=== PATIENT | male | born 1955 | race Caucasian/White ===

== ENCOUNTER → 2022-01-27 08:38 | Outpatient (BNVA) | payer OTHER, MEDICARE, SELFPAY | PROVIDERS: PCP Nurse Practitioner Adult Health; Visit Provider Nurse Practitioner Family | DX: M25.561 Pain in right knee (principal); M25.562 Pain in left knee; Z96.653 Presence of artificial knee joint, bilateral; M47.816 Spondylosis without myelopathy or radiculopathy, lumbar region | CPT/HCPCS: 99202 ==

== ENCOUNTER 2022-03-27 05:57 | Outpatient (REF) | payer OTHER, SELFPAY | END 2022-03-27 05:58 | disposition home or self-care (01) | LOC: HO.RADIR 05:57 | PROVIDERS: Visit Provider Internal Medicine | DX: M25.561 Pain in right knee (principal); M25.562 Pain in left knee; G89.29 Other chronic pain | CPT/HCPCS: 64447 ==

== ENCOUNTER 2022-04-03 06:06 | Outpatient (REF) | payer OTHER, SELFPAY ==
--- NOTE | ~2022-04-03 | FL_ITS ---
EXAMINATION: XR FLUOROSCOPY WITH IMAGES CLINICAL INFORMATION: Pain. COMPARISON: None. TECHNIQUE: Fluoroscopy performed by ANANTH Sanon Fluoroscopy time: 0.1 minutes DAP: 0.215 Gycm2 Images: 2 FINDINGS: There are 2 AP and lateral views of left knee with bilateral knee prosthesis in satisfactory alignment. No periprostatic soft tissue seen. There is a severed screw seen along the medial aspect of the proximal tibia. There are needles positioned along the medial and lateral distal femur and proximal medial tibia for pain management. FL/FL guidance in treatment room IMPRESSION: Knee prosthesis in satisfactory alignment. Fluoroscopy was provided to referring physician for pain management.
== END 2022-04-03 06:07 | disposition home or self-care (01) ==
LOC: HO.RADIR 06:06
PROVIDERS: Visit Provider Internal Medicine
DX: M17.0 Bilateral primary osteoarthritis of knee (principal); G89.29 Other chronic pain
CPT/HCPCS: 64450; 64454; J2795

== ENCOUNTER → 2022-04-07 10:19 | Outpatient (BNVA) | payer OTHER, SELFPAY | PROVIDERS: PCP Nurse Practitioner Adult Health; Visit Provider Nurse Practitioner Family | DX: M17.0 Bilateral primary osteoarthritis of knee (principal) ==

== ENCOUNTER 2022-06-03 06:14 | Outpatient (REF) | payer OTHER, SELFPAY | END 2022-06-03 06:15 | disposition home or self-care (01) | LOC: HO.RADIR 06:14 | PROVIDERS: Visit Provider Internal Medicine | DX: M17.0 Bilateral primary osteoarthritis of knee (principal); G89.29 Other chronic pain; Z87.891 Personal history of nicotine dependence | CPT/HCPCS: 64447; 64450 ==

== ENCOUNTER 2022-08-12 09:03 | Day surgery (SDC) | payer MEDICARE, SELFPAY ==
[2022-08-12 10:35] VITALS: BP 132/80; RESP 18; TEMP 36.6; O2SAT 99; BMI 23.1
[2022-08-12 11:35] VITALS: BP 138/81; PULSE 67; RESP 16; TEMP 36.6; O2SAT 99
--- NOTE | 2022-08-12 13:34 | MHC.SHP ---
Pre-Procedural Eval Section A Date of Service: 08/12/22 The patient is an INPATIENT: No Changes since office visit: Yes Patient answered all questions The History & Physical has been completed within 30 days and I have reviewed it.: No Section B Chief Complaint: Chronic bilateral knee pain Relevant Family History (Specify if Yes): No Relevant Social History: None Present Medications: see Short Stay Collaborative assessment Medical History: No relevant PMH History of Previous Operations: Relevant previous surgery/procedure and date(s) ( history of TKR) Allergies: Allergies Allergy/AdvReac Type Severity Reaction Status Date / Time No Known Allergies Allergy Verified 06/05/22 11:41 Review of Systems Sugical H&P ROS: Negative: Constitution, Cardiovascular and Respiratory Exam Surgical H&P Exam: Normal: HEENT, Normal: Heart and Normal: Lungs Plan Diagnosis/Plan: Unchanged I have reviewed the history and physical and performed a pertinent physical examination on my patient. No changes have occurred unless specified.
--- NOTE | 2022-08-12 13:35 | P.BOP_ITS ---
Brief Operative Note Date of Service: 08/12/22 Pre-op diagnosis: Chronic right knee pain Post-op diagnosis: same Procedure: Temporary right saphenous nerve stimulator placement at the level of the adductor canal Implants: SPR temporary PNS system Surgeon: Cabrera Mendoza MD Anesthesia: local Was an Spinning Room Worker used for this Procedure?: No Estimated blood loss (mL): 2 Pathology: none sent Condition: stable Disposition: same day
--- NOTE | 2022-08-12 13:36 | P.OP_ITS ---
Operative Note Operative Note Date of Service: 08/12/22 Narrative: Peripheral Nerve Stimulation Temporary Lead Placement, Ultrasound-Guided, Saphenous Nerve, Right ? After the risks, benefits and alternatives were discussed with the patient and informed consentwas obtained, patient was placed in the supine position and padded to foster comfort. Appropriate skin and bony landmarks were identified, and pertinent vascular structures were located. The skin overlying the needle entry site was prepped and draped in sterile fashion. Ultrasound was used to identify the femoral artery, the femoral vein and the saphenous nerve. After identifying and marking the intended target along the course of the right saphenous nerve, the skin around the planned entry point and the subcutaneous tissues were injected with local anesthetic. An introducer needle and stimulating probe were assembled, inserted and advanced along the intended course of the saphenous; nerve, taking care to maintain the proper depth of insertion as the introducer was advanced under ultrasound guidance. The introducer needle was delivered to a location in proximity to the nerve taking care not to puncture the femoral artery or the vein. Multiple stimulation parameters were used to deliver stimulation to the saphenous nerve in concert with stimulating at multiple positions around the nerve. Nerve target acquisition was confirmed noting generation of sensory and mild motor effects (paresthesia, muscle tension, etc) in the medial knee, leg and ankle; corresponding to the distribution of the saphenous nerve. Various electrical parameter combinations were tested, and the lead location was adjusted ( physically relocated under ultrasound guidance) until the patient indicated medial knee paresthesia and tension overlapping the distribution of the patient?s typical region of pain. The stimulating probe was removed from the introducer and a percutaneous lead was guided through the needle and delivered to a location in similar proximity to the nerve. Final location was verified with electrical stimulation and documented. The introducer needle was removed, and the exposed end of the percutaneous lead was attached to an external stimulator unit. Various electrical parameter combinations were again tested until the patient indicated paresthesia and muscle tension overlapping the distribution of the patient?s typical region of pain. After confirming that lead impedance was in the normal range, the external unit was detached, the needle was removed, and the lead was anchored at the skin. The lead was threaded into the connector block and electrical continuity and desired patient response was confirmed. The connector block was attached to the external stimulator unit. The site was covered with a sterile occlusive dressing. A final ultrasound image was taken to document final placement. The patient was observed for stability of vital signs and comfort.
== END 2022-08-12 12:07 | disposition home or self-care (01) ==
PROVIDERS: PCP Nurse Practitioner Adult Health; Visit Provider Internal Medicine
PROC: (CPT 64555; principal; 2022-08-12 10:40)
DX: M25.561 Pain in right knee (principal); G89.29 Other chronic pain; M17.0 Bilateral primary osteoarthritis of knee; Z96.653 Presence of artificial knee joint, bilateral
CPT/HCPCS: 64555; C1778

== ENCOUNTER → 2022-08-20 09:46 | Outpatient (BNVA) | payer MEDICARE, SELFPAY | PROVIDERS: PCP Nurse Practitioner Adult Health; Visit Provider Nurse Practitioner Family | DX: G89.29 Other chronic pain (principal); Z96.653 Presence of artificial knee joint, bilateral | CPT/HCPCS: 99212 ==

== ENCOUNTER 2022-10-21 08:49 | Day surgery (SDC) | payer MEDICARE, SELFPAY ==
[2022-10-21 09:23] VITALS: BP 141/88; PULSE 84; RESP 16; TEMP 36.2; O2SAT 98; BMI 22.6
[2022-10-21 11:15] VITALS: BP 129/75; PULSE 71; RESP 16; TEMP 37.1; O2SAT 98
--- NOTE | 2022-10-22 13:46 | MHC.SHP ---
Pre-Procedural Eval Section A Date of Service: 10/21/22 The patient is an INPATIENT: No Changes since office visit: Yes Patient answered all questions The History & Physical has been completed within 30 days and I have reviewed it.: No Section B Chief Complaint: osteoarthritis Relevant Family History (Specify if Yes): No Present Medications: see Short Stay Collaborative assessment Medical History: No relevant PMH History of Previous Operations: No relevant previous surgery Allergies: Allergies Allergy/AdvReac Type Severity Reaction Status Date / Time No Known Allergies Allergy Verified 10/21/22 09:21 Review of Systems Sugical H&P ROS: Negative: Constitution, Cardiovascular and Respiratory Exam Surgical H&P Exam: Normal: HEENT, Normal: Heart and Normal: Lungs Plan Diagnosis/Plan: Unchanged I have reviewed the history and physical and performed a pertinent physical examination on my patient. No changes have occurred unless specified. Time Spent With Patient Time: Total time managing care of this patient today 60 minutes.
--- NOTE | 2022-10-22 14:09 | PM.OP ---
Brief Operative Note Date of Service: 10/21/22 Pre-op diagnosis: Right knee osteoarthritis, chronic right knee pain Post-op diagnosis: same Procedure: Temporary right saphenous nerve stimulator Implants: SPR temporary PNS system Surgeon: Cabrera Mendoza MD Anesthesia: local Was an Placement Manager used for this Procedure?: No Estimated blood loss (mL): 1 Pathology: none sent Condition: stable Disposition: same day
--- NOTE | 2022-10-22 14:12 | P.OP_ITS ---
Operative Note Operative Note Date of Service: 10/21/22 Narrative: Peripheral Nerve Stimulation Temporary Lead Placement, Ultrasound-Guided, Saphenous Nerve, Right ? After the risks, benefits and alternatives were discussed with the patient and informed consentwas obtained, patient was placed in the supine position and padded to foster comfort. Appropriate skin and bony landmarks were identified, and pertinent vascular structures were located. The skin overlying the needle entry site was prepped and draped in sterile fashion. Ultrasound was used to identify the femoral artery, the femoral vein and the saphenous nerve. After identifying and marking the intended target along the course of the saphenous nerve, the skin around the planned entry point and the subcutaneous tissues were injected with local anesthetic. An introducer needle and stimulating probe were assembled, inserted and advanced along the intended course of the saphenous; nerve, taking care to maintain the proper depth of insertion as the introducer was advanced under ultrasound guidance. The introducer needle was delivered to a location in proximity to the nerve taking care not to puncture the femoral artery or the vein. Multiple stimulation parameters were used to deliver stimulation to the saphenous nerve in concert with stimulating at multiple positions around the nerve. Nerve target acquisition was confirmed noting generation of sensory and mild motor effects (paresthesia, muscle tension, etc) in the medial knee, leg and ankle; corresponding to the distribution of the saphenous nerve. Various electrical parameter combinations were tested, and the lead location was adjusted (physic ally relocated under ultrasound guidance) until the patient indicated medial knee paresthesia and tension overlapping the distribution of the patient?s typical region of pain. The stimulating probe was removed from the introducer and a percutaneous lead was guided through the needle and delivered to a location in similar proximity to the nerve. Final location was verified with electrical stimulation and documented. The introducer needle was removed, and the exposed end of the percutaneous lead was attached to an external stimulator unit. Various electrical parameter combinations were again tested until the patient indicated paresthesia and muscle tension overlapping the distribution of the patient?s typical region of pain. After confirming that lead impedance was in the normal range, the external unit was detached, the needle was removed, and the lead was anchored at the skin. The lead was threaded into the connector block and electrical continuity and desired patient response was confirmed. The connector block was attached to the external stimulator unit. The site was covered with a sterile occlusive dressing. A final ultrasound image was taken to document final placement. The patient was observed for stability of vital signs and comfort.
== END 2022-10-21 11:30 | disposition home or self-care (01) ==
PROVIDERS: PCP Nurse Practitioner Adult Health; Visit Provider Internal Medicine
PROC: (CPT 64555; principal; 2022-10-21 10:00)
DX: M17.0 Bilateral primary osteoarthritis of knee (principal); M25.561 Pain in right knee; M25.562 Pain in left knee; G89.29 Other chronic pain; Z96.653 Presence of artificial knee joint, bilateral
CPT/HCPCS: 64555; C1778

== ENCOUNTER → 2022-10-29 09:47 | Outpatient (BNVA) | payer MEDICARE, SELFPAY | PROVIDERS: PCP Nurse Practitioner Adult Health; Visit Provider Nurse Practitioner Family | DX: M25.561 Pain in right knee (principal); M25.562 Pain in left knee; M17.0 Bilateral primary osteoarthritis of knee; G89.29 Other chronic pain; Z96.653 Presence of artificial knee joint, bilateral | CPT/HCPCS: 99212 ==

== ENCOUNTER → 2022-11-12 11:23 | Outpatient (BNVA) | payer MEDICARE, SELFPAY | PROVIDERS: PCP Nurse Practitioner Adult Health; Visit Provider Nurse Practitioner Family | DX: M17.0 Bilateral primary osteoarthritis of knee (principal); G89.29 Other chronic pain; M25.561 Pain in right knee; M25.562 Pain in left knee; Z96.653 Presence of artificial knee joint, bilateral; Z98.890 Other specified postprocedural states | CPT/HCPCS: 99212 ==

== ENCOUNTER → 2022-12-17 08:51 | Outpatient (BNVA) | payer MEDICARE, SELFPAY | PROVIDERS: PCP Nurse Practitioner Adult Health; Visit Provider Nurse Practitioner Family | DX: M17.0 Bilateral primary osteoarthritis of knee (principal); M25.561 Pain in right knee; M25.562 Pain in left knee; G89.29 Other chronic pain; Z96.653 Presence of artificial knee joint, bilateral | CPT/HCPCS: 99212 ==

== ENCOUNTER 2023-02-03 13:41 | Day surgery (SDC) | payer MEDICARE, SELFPAY ==
[2023-02-03 13:52] VITALS: BMI 23.1
[2023-02-03 14:01] VITALS: BP 145/75; PULSE 84; RESP 16; TEMP 36.7; O2SAT 98
--- NOTE | 2023-02-03 14:51 | MHC.SHP ---
Pre-Procedural Eval Section A Date of Service: 02/03/23 The patient is an INPATIENT: No Changes since office visit: Yes Patient answered all questions The History & Physical has been completed within 30 days and I have reviewed it.: No Section B Chief Complaint: Pain in left knee Relevant Family History (Specify if Yes): No Relevant Social History: None Present Medications: see Short Stay Collaborative assessment Medical History: No relevant PMH History of Previous Operations: No relevant previous surgery Allergies: Allergies Allergy/AdvReac Type Severity Reaction Status Date / Time No Known Allergies Allergy Verified 02/03/23 13:53 Review of Systems Sugical H&P ROS: Negative: Constitution, Cardiovascular and Respiratory Exam Surgical H&P Exam: Normal: HEENT, Normal: Heart and Normal: Lungs Plan Diagnosis/Plan: Unchanged I have reviewed the history and physical and performed a pertinent physical examination on my patient. No changes have occurred unless specified. Time Spent With Patient Time: Total time managing care of this patient today ____ minutes.
--- NOTE | 2023-02-03 14:52 | PM.OP ---
Brief Operative Note Date of Service: 02/03/23 Pre-op diagnosis: Left knee pain, chronic Post-op diagnosis: same Procedure: Temporary left saphenous nerve stimulator placement Implants: Sprint PNS system Surgeon: Cabrera Mendoza MD Anesthesia: regional and local Was an Missile Mechanic used for this Procedure?: No Estimated blood loss (mL): 3 Pathology: none sent Condition: stable Disposition: PACU
--- NOTE | 2023-02-03 14:53 | P.OP_ITS ---
Operative Note Operative Note Date of Service: 02/03/23 Narrative: Peripheral Nerve Stimulation Temporary Lead Placement, Ultrasound-Guided, Saphenous Nerve, Left ? After the risks, benefits and alternatives were discussed with the patient and informed consent was obtained, patient was placed in the supine position and padded to foster comfort. Appropriate skin and bony landmarks were identified, and pertinent vascular structures were located. The skin overlying the needle entry site was prepped and draped in sterile fashion. Ultrasound was used to identify the femoral artery, the femoral vein and the saphenous nerve. After identifying and marking the intended target along the course of the saphenous nerve, the skin around the planned entry point and the subcutaneous tissues were injected with local anesthetic. An introducer needle and stimulating probe were assembled, inserted and advanced along the intended course of the saphenous; nerve, taking care to maintain the proper depth of insertion as the introducer was advanced under ultrasound guidance. The introducer needle was delivered to a location in proximity to the nerve taking care not to puncture the femoral artery or the vein. Multiple stimulation parameters were used to deliver stimulation to the saphenous nerve in concert with stimulating at multiple positions around the nerve. Nerve target acquisition was confirmed noting generation of sensory and mild motor effects (paresthesia, muscle tension, etc) in the medial knee, leg and ankle; corresponding to the distribution of the saphenous nerve. Various electrical parameter combinations were tested, and the lead location was adjusted (physic ally relocated under ultrasound guidance) until the patient indicated medial knee paresthesia and tension overlapping the distribution of the patient?s typical region of pain. The stimulating probe was removed from the introducer and a percutaneous lead was guided through the needle and delivered to a location in similar proximity to the nerve. Final location was verified with electrical stimulation and documented. The introducer needle was removed, and the exposed end of the percutaneous lead was attached to an external stimulator unit. Various electrical parameter combinations were again tested until the patient indicated paresthesia and muscle tension overlapping the distribution of the patient?s typical region of pain. After confirming that lead impedance was in the normal range, the external unit was detached, the needle was removed, and the lead was anchored at the skin. The lead was threaded into the connector block and electrical continuity and desired patient response was confirmed. The connector block was attached to the external stimulator unit. The site was covered with a sterile occlusive dressing. A final ultrasound image was taken to document final placement. The patient was observed for stability of vital signs and comfort.
[2023-02-03 15:40] VITALS: BP 152/82; PULSE 76; RESP 16; TEMP 36.2; O2SAT 98
== END 2023-02-03 16:07 | disposition home or self-care (01) ==
PROVIDERS: PCP Nurse Practitioner Adult Health; Visit Provider Internal Medicine
PROC: (CPT 64555; principal; 2023-02-03 15:00)
DX: M25.562 Pain in left knee (principal); G89.29 Other chronic pain; M17.0 Bilateral primary osteoarthritis of knee; Z96.653 Presence of artificial knee joint, bilateral; Z87.891 Personal history of nicotine dependence
CPT/HCPCS: 64555; C1778

== ENCOUNTER → 2023-02-09 09:47 | Outpatient (BNVA) | payer MEDICARE, SELFPAY | PROVIDERS: PCP Nurse Practitioner Adult Health; Visit Provider Nurse Practitioner Family | DX: M17.0 Bilateral primary osteoarthritis of knee (principal); M25.561 Pain in right knee; M25.562 Pain in left knee; G89.29 Other chronic pain; Z96.653 Presence of artificial knee joint, bilateral | CPT/HCPCS: 99212 ==

== ENCOUNTER 2023-07-30 09:52 | Outpatient (AMB) | payer MEDICARE, SELFPAY ==
--- NOTE | 2023-07-30 09:57 | A.SPINEOV_ITS ---
Intake Intake Visit Reasons: Lumbar spondylosis Intake Note: Mr. Griggs is here today c/o low back pain. MRI done @ [facility]/brought disc. [employer]ine Required: No Allergies No Known Allergies Allergy (Verified 02/09/23 10:04) Assessment & Plan Assessment & Plan (1) Scoliosis (and kyphoscoliosis), idiopathic: Code(s): M41.20 - Other idiopathic scoliosis, site unspecified (2) Upper extremity weakness: Code(s): R29.898 - Other symptoms and signs involving the musculoskeletal system Plan Dear Dr Chin, Thank you for referring Mr Hernandez to our office today. He is a very nice 68-year-old gentleman with a history of pulmonary embolus, on Eliquis, 2 previous lumbar decompressions done by Dr Rodriguez at [facility] coming in today for evaluation of back pain in the lower lumbar region radiating into both of his legs going down into his calves.. The last surgery at [facility] was in 2020. He tells me that he had some brief relief of his symptoms but over the last year so he has just been having unrelenting severe pain any time he tries to stand and walk and it completely goes away when he sits down. He has been through the physical therapy, cortisone injection routine many times and really does not have much interest in going back to that. He tells me that Dr. Rodriguez told him that he was basically at the end of the line for surgery and that there was nothing more he could do for him. He comes today for evaluation of his scoliosis seen on his imaging done occluded [facility]. He is chronically on narcotics including fentanyl and Dilaudid. PMH: History of pulmonary embolus remotely, unknown at the allergy but he has been on Eliquis for many years. History of rheumatoid arthritis, he was chronically on prednisone for years, currently maintained on Arava, hydroxychloroquine and sulfasalazine, history of GERD, carpal tunnel release, total knee replacement bilaterally, finger amputation, lumbar surgery as outlined above in prostate surgery in 2012, denies any cardiac history, renal problems. Social hx: Quit smoking in 1988 Medications: Duloxetine, Eliquis, fentanyl, hydromorphone, hydroxychloroquine,Arava, Klor-Con, metoprolol, omeprazole, rosuvastatin, sulfasalazine, trazodone Allergies: Lisinopril Physical exam: He is a cachectic gentleman, appears to have wasting and atrophy of his arms and hands. His motor examination reveals a diffuse weakness in the upper extremities which I would rate as 4-5. He has mild iliopsoas weakness as well which I would rate as 4-5. Distal lower extremity strength is full. He has absent reflexes throughout. He walks with a slight tilt to the right side, slightly off balance with tandem gait testing. Imaging review: Lumbar MRI done a [facility] in May 2023 shows transitional anatomy, a significant levoscoliosis with the apex at L3, multilevel degenerative disc and foraminal narrowing bilaterally. Impression: 68-year-old gentleman presents to the office today for evaluation of chronic low back pain and bilateral radicular pain going down his legs into his calves in the setting of 2 previous lumbar decompressions done at [facility]. He has a significant scoliosis as seen on his lumbar spine extending from L2-S1 in addition to degenerative disc disease and multilevel foraminal narrowing. This gentleman has been through previous surgeries as well as previous conservative treatment and at this point his quality of life is suffering significantly. He tells me spends most of his day in a chair because any attempt to stand up just makes things worse. I sent him for standing flexion- extension x-rays and the AP view clearly shows that there is a worsening of his scoliosis in a vertical position. I am going to send him for a noncontrast lumbar CT to better evaluate if there is any auto fusion along the segments of the lumbar spine before we could consider surgery. Also given his diffuse upper extremity atrophy and gait imbalance I am going to check to make sure there is no cervical spine disease that might explain this. He does report hand weakness but no numbness. Thank you for allowing us to care for your patient. The total time spent with this visit with this patient was 45 minutes reviewing history, physical exam, lumbar imaging review, and implementation of treatment plan or further diagnostic testing Lars Spencer MD,PhD [facility] Orders: Orders XR lumbar spine 4V min Today M41.20 - Other idiopathic scoliosis, site unspecified CT lumbar spine wo IV con Today M41.20 - Other idiopathic scoliosis, site unspecified MR cervical spine wo con Today R29.898 - Other symptoms and signs involving the musculoskeletal system Coding Level of Care Code New Pt Level 4 (37426) Diagnoses Scoliosis (and kyphoscoliosis), idiopathic M41.20 Upper extremity weakness R29.898
== END 2023-07-30 10:18 | disposition home or self-care (01) ==
PROVIDERS: PCP Nurse Practitioner Adult Health; Referring Provider Neurological Surgery; Visit Provider Physician Assistant
DX: M41.20 Other idiopathic scoliosis, site unspecified (principal); R29.898 Other symptoms and signs involving the musculoskeletal system
CPT/HCPCS: 99204

== ENCOUNTER 2023-07-30 09:52 | Outpatient (REF) | payer MEDICARE, SELFPAY ==
--- NOTE | ~2023-07-30 | XR_ITS ---
EXAMINATION: XR LUMBOSACRAL SPINE CLINICAL INFORMATION: Reason for Exam M41.20 - Other idiopathic scoliosis, site unspecified COMPARISON: None TECHNIQUE: 4 views of the lumbar spine FINDINGS: 5 nonrib-bearing lumbar-type vertebral bodies. Vertebral body heights are maintained. Levoconvex curvature of the lumbar spine. No instability on flexion extension views. Advanced multilevel degenerative disc disease with loss of disc space height and facet arthropathy with complete loss of disc space height at L3-L4 through L4-L5. Atherosclerotic calcifications of the abdominal aorta. XR/XR lumbar spine 4V min IMPRESSION: * Advanced spondylosis of the lumbar spine, as above detailed. * Levoconvex curvature of the lumbar spine.
== END 2023-07-30 09:53 | disposition home or self-care (01) ==
LOC: HO.HOSX 09:52
PROVIDERS: PCP Nurse Practitioner Adult Health; Visit Provider Physician Assistant
DX: M41.20 Other idiopathic scoliosis, site unspecified (principal); R29.898 Other symptoms and signs involving the musculoskeletal system; M47.816 Spondylosis without myelopathy or radiculopathy, lumbar region
CPT/HCPCS: 72110

== ENCOUNTER 2023-09-07 13:12 | Outpatient (AMB) | payer MEDICARE, SELFPAY ==
--- NOTE | 2023-09-07 13:21 | A.SPINEOV_ITS ---
Intake Intake Visit Reasons: 3 week f/u Intake Note: Mr. Griggs is here today for his 3wk follow up. MRI done @ [facility]/brought disc. Register Repairer Required: No Allergies No Known Allergies Allergy (Verified 02/09/23 10:04) Assessment & Plan Assessment & Plan (1) Upper extremity weakness: Code(s): R29.898 - Other symptoms and signs involving the musculoskeletal system Plan MR Hernandez is here to review his lumbar CT and his cervical MRI. Please see my previous note for the specifics of his problem. The patient had his MRIs done a [facility] as well as his CT scan. His cervical MRI shows that he has severe stenosis at C4-5 and C5-6 as well as moderate to severe stenosis at C3-4 with a slight spondylolisthesis at this level. He has a significant kyphotic curvature of his cervical spine as well with what looks like significant bony overgrowth from C4-C6. This would certainly explain his presentation of diffuse weakness with his upper extremities as well as proximal leg weakness in the lower extremities. Dr. Spencer and I discussed with him at length that the options would be either anterior or posterior approach, but most likely the least invasive way to handle this would be a posterior decompression with or without lateral mass screws depending on the amount of auto fusion that has already taken place. We will need to get a CT scan of the cervical spine to evaluate this. With regard to his lumbar spine, as outlined in my previous note, he will need a scoliosis correction from L2-S1 in order to adequately treat the skeletal deformity and indirectly decompress the foraminal nerves which we believe are giving him his leg pain and back pain. We will need to address his cervical spine 1st as obviously that is higher priority. We will arrange is CT scan and see him back in the office once it is completed. We did briefly review the boaz gical procedure, as well as discussion that he will need to be off his Arava for a few months prior to the procedure and off his Eliquis 3-4 days before and after surgery. Total amount of time spent in this visit was 20 minutes in discussion of symptoms, cervical and lumbar imaging results and subsequent plan of care Lars Spencer MD,PhD [facility] Orders: Orders CT cervical spine wo IV con Today R29.898 - Other symptoms and signs involving the musculoskeletal system Coding Level of Care Code Est Pt Level 3 (03759) Diagnoses Upper extremity weakness R29.898
== END 2023-09-07 13:55 | disposition home or self-care (01) ==
PROVIDERS: PCP Nurse Practitioner Adult Health; Visit Provider Physician Assistant
DX: R29.898 Other symptoms and signs involving the musculoskeletal system (principal)
CPT/HCPCS: 99213

== ENCOUNTER → 2023-09-07 13:12 | Outpatient (BNVA) | payer MEDICARE, SELFPAY | PROVIDERS: PCP Nurse Practitioner Adult Health; Visit Provider Physician Assistant | DX: R29.898 Other symptoms and signs involving the musculoskeletal system (principal) | CPT/HCPCS: 99212 ==

== ENCOUNTER 2023-10-08 11:09 | Outpatient (AMB) | payer MEDICARE, SELFPAY ==
--- NOTE | 2023-10-08 11:58 | HO.SPINEOV ---
Intake Intake Visit Reasons: ct follow up & discuss sx Intake Note: Mr. Griggs is here today to discuss results of CT Scan. 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 He brought the disc in with him for us to review today. Please see previous notes for the specifics of his problem. He continues to have significant bilateral upper extremity weakness1. Most recently it was discussed having both a surgical intervention for his cervical spine and for his lumbar spine. The priority of which has been determined to be his cervical spine. His previous discussion with FABIOLA Whitney had been regarding a possible posterior decompression to address the severe spinal canal stenosis whcih is present from c3-c6, worse at c4-5, and c5-6. After reviewing his CT scan it seems though he is auto fused between the levels of C4-5, C5-6, C6-7. We discussed the possibility of a posterior decompression at C4-5, C5-6 with or without the need for lateral mass screws. I will review the films with Dr. Spencer next week for final clarification/surgical decision making. Again, we will need to re-evaluate the patient after postoperative healing for surgical correction of his lumbar spine. Enrike was given risk and benefits of surgery including but not limited to infection, hematoma, nerve injury, durotomy, weakness, bowel/bladder injury, persistent pain, as well as the option to continue with conservative treatment and patient wishes to proceed with surgery. He is aware he should stop eliquis 3 days before surgery, and NSAIDs 7 days prior to surgery. He also already discussed stopping his Arava with FABIOLA Whitney, and the patient confirms that he canstop this at this time. All questions were answered to the best of our ability. If there is anything about this patients medical history that we have overlooked or concerns you have about us proceeding with surgery we would appreciate any input you can offer. We discussed that pain management will be an issue after surgery due to his prolonged narcotic pain medication use. Total amount of time spent in this visit was 45 minutes in discussion of symptoms, CT cervical spine, MRI cervical spine imaging results an subsequent plan of care. Onur Spencer MD,PhD [facility] * Dr. Spencer reviewed both the cervical MRI and cervical CT scan. He offered the patient a C4-5,C5-C6 posterior decompression. I called the patient to inform him of his final decision, and he has been booked for a tentative surgical date of 12/30/2023.* Orders: Orders XR cervical spine 4V 10/08/23 R29.898 - Other symptoms and signs involving the musculoskeletal system Coding Level of Care Code Est Pt Level 5 (87359) Diagnoses Upper extremity weakness R29.898
== END 2023-10-08 13:00 | disposition home or self-care (01) ==
PROVIDERS: PCP Nurse Practitioner Adult Health; Visit Provider Physician Assistant
DX: R29.898 Other symptoms and signs involving the musculoskeletal system (principal)
CPT/HCPCS: 99215

== ENCOUNTER 2023-10-08 11:09 | Outpatient (REF) | payer MEDICARE, SELFPAY ==
--- NOTE | ~2023-10-08 | XR_ITS ---
EXAMINATION: XR CERVICAL SPINE CLINICAL INFORMATION: Other symptoms and signs involving the musculoskeletal system. COMPARISON: None available. TECHNIQUE: 4 views of the cervical spine were obtained including flexion and extension. FINDINGS: Severe degenerative changes are seen from C4 through C7 with virtually no discernible disc spaces and marked sclerosis. There are 2 mm of subluxation of C3 upon C4. No prevertebral soft tissue swelling or fractures are seen. Vascular calcifications are noted. Left apical pleural-parenchymal scarring is present. XR/XR cervical spine 4V IMPRESSION: Severe degenerative changes from C4 through C7 with 2 mm of subluxation of C3 upon C4.
== END 2023-10-08 11:10 | disposition home or self-care (01) ==
LOC: HO.HOSX 11:09
PROVIDERS: PCP Nurse Practitioner Adult Health; Visit Provider Physician Assistant
DX: Z01.818 Encounter for other preprocedural examination (principal); R29.898 Other symptoms and signs involving the musculoskeletal system
CPT/HCPCS: 72050; 99212

== ENCOUNTER 2024-01-04 06:52 | Day surgery (SDC) | payer MEDICARE, SELFPAY ==
[2023-12-21 10:46] VITALS: BMI 22.7
--- NOTE | 2024-01-03 13:43 | P.CONAN_ITS ---
Documented by User: Kiara Allen NP 01/03/24 13:53 HPI - Anesthesia Eval Consult details Narrative: 68yo M for C4-5, C5-6 Posterior Cervical Decomp Multi Medically cleared Fentanyl patch - chronic pain d/t RA Eliquis for hx unprovoked bilat PE's 2016 Chronic SOB with recent extensive pulmo w/u (Chest CT, echo, pharm nuc stress all unremarkable per clearance note). ILD likely d/t RA PMFSH Active Problems Active Problems: All Active Problems (Updated 12/21/23 @ 10:35 by Ricarda Amos RN) Upper extremity weakness (Acute) Scoliosis (and kyphoscoliosis), idiopathic (Acute) Lumbar spondylosis (Acute) Bilateral chronic knee pain (Acute) History of total bilateral knee replacement (Acute ~2014) Primary osteoarthritis of knees, bilateral (Acute) Past Medical History Medical History Bladder wall thickening BPH (benign prostatic hyperplasia) Sciatica of left side associated with disorder of lumbar spine Seropositive rheumatoid arthritis Pyogenic arthritis Hyperlipidemia Elevated glucose level Degenerative disc disease, lumbar Chronic ulcer of great toe of left foot COPD (chronic obstructive pulmonary disease) Arthritis Back pain Pulmonary embolism GERD (gastroesophageal reflux disease) Elevated cholesterol HTN (hypertension) Shortness of breath Erectile dysfunction Surgical History Surgical History Hx of arthroscopy of knee History of prostate surgery History of carpal tunnel release History of carpal tunnel release of both wrists History of esophagogastroduodenoscopy (EGD) History of bronchoscopy History of total bilateral knee replacement Hx of surgical amputation of finger H/O colonoscopy History of back surgery (~2018) History of elbow surgery (~2017) Social History Social History Are you a primary personal care aide to a significant other at home: No Do you presently have visiting nurse or other home services: No Alcohol intake: current Alcohol intake frequency: a few times a week Alcohol type: beer Patient Tobacco Use Status: Former Tobacco user Quit Date: 1988 Use of substances other than those prescribed or required for medical reasons: No Have you been hit, kicked, punched, or otherwise hurt by someone within the past year? If so, by whom?: No Advance Directives: No Advance Directives Information Provided: Yes Advance Directives on File: No Recently lost weight without trying: No Eating poorly because of decreased appetite: No Nutrition Risks: No Nutritional Risk Poor oral hygiene: Yes (full Upper denture and lower partial denture) Meds Allergies Allergy/AdvReac Type Severity Reaction Status Date / Time No Known Allergies Allergy Verified 01/04/24 07:12 Home Medications Medication Instructions Recorded Confirmed Last Taken Type amlodipine 10 mg tablet 10 mg PO DAILY 01/27/22 12/21/23 01/04/24 History apixaban 2.5 mg tablet (Eliquis) 2.5 mg PO BID 01/27/22 12/21/23 12/31/23 History hydroxychloroquine 200 mg tablet 200 mg PO BID 01/27/22 12/21/23 01/04/24 History naloxone 4 mg/actuation nasal 1 spray intranasal DAILY PRN 01/27/22 12/21/23 Unknown History spray (Narcan) Opioid Overdose omeprazole 40 mg capsule,delayed 40 mg PO DAILY 01/27/22 12/21/23 01/04/24 History release rosuvastatin 10 mg tablet 10 mg PO DAILY 01/27/22 12/21/23 Unknown History sildenafil 25 mg tablet 25 mg PO DIRECTED 01/27/22 12/21/23 Unknown History sulfasalazine 500 mg 1,500 mg PO BID 01/27/22 12/21/23 01/04/24 History tablet,delayed release trazodone 50 mg tablet 50 mg PO BEDTIME 01/27/22 12/21/23 Unknown History potassium chloride 10 mEq 10 meq PO BID 08/20/22 12/21/23 Unknown History tablet,extended release(part/cryst) (Klor-Con M) hydromorphone 4 mg tablet 2 tab PO DAILY PRN pain 10/21/22 12/21/23 10/21/22 History duloxetine 40 mg capsule,delayed 40 mg PO BID 12/21/23 12/21/23 01/04/24 History release fentanyl 100 mcg/hr transdermal 1 patch topical Q3D 12/21/23 12/21/23 Unknown History patch leflunomide 20 mg tablet 20 mg PO DAILY 01/04/24 01/04/24 11/03/23 History metoprolol succinate 50 mg 50 mg PO DAILY 01/04/24 01/04/24 01/04/24 History tablet,extended release 24 hr Exam Height,Weight and Vital Signs: Height 5 ft 8 in Weight 67.585 kg Narrative Narrative: EKG 07/[address]-T changes Assessment and Plan Assessment Anesthesia Assessment: Chart Reviewed Documented by User: Juani Moreno MD 01/04/24 08:45 PMFSH Past Medical History Medical History Bladder wall thickening BPH (benign prostatic hyperplasia) Sciatica of left side associated with disorder of lumbar spine Seropositive rheumatoid arthritis Pyogenic arthritis Hyperlipidemia Elevated glucose level Degenerative disc disease, lumbar Chronic ulcer of great toe of left foot COPD (chronic obstructive pulmonary disease) Arthritis Back pain Pulmonary embolism GERD (gastroesophageal reflux disease) Elevated cholesterol HTN (hypertension) Shortness of breath Erectile dysfunction Surgical History Surgical History Hx of arthroscopy of knee History of prostate surgery History of carpal tunnel release History of carpal tunnel release of both wrists History of esophagogastroduodenoscopy (EGD) History of bronchoscopy History of total bilateral knee replacement Hx of surgical amputation of finger H/O colonoscopy History of back surgery (~2019) History of elbow surgery (~2018) History of Problems with Anesthesia: No Social History Social History Are you a primary personal care aide to a significant other at home: No Do you presently have visiting nurse or other home services: No Alcohol intake: current Alcohol intake frequency: a few times a week Alcohol type: beer Patient Tobacco Use Status: Former Tobacco user Quit Date: 1988 Use of substances other than those prescribed or required for medical reasons: No Have you been hit, kicked, punched, or otherwise hurt by someone within the past year? If so, by whom?: No Advance Directives: No Advance Directives Information Provided: Yes Advance Directives on File: No Recently lost weight without trying: No Eating poorly because of decreased appetite: No Nutrition Risks: No Nutritional Risk Poor oral hygiene: Yes (full Upper denture and lower partial denture) Meds Allergies Allergy/AdvReac Type Severity Reaction Status Date / Time No Known Allergies Allergy Verified 01/04/24 07:12 Home Medications Medication Instructions Recorded Confirmed Last Taken Type amlodipine 10 mg tablet 10 mg PO DAILY 01/27/22 12/21/23 01/04/24 History apixaban 2.5 mg tablet (Eliquis) 2.5 mg PO BID 01/27/22 12/21/23 12/31/23 History hydroxychloroquine 200 mg tablet 200 mg PO BID 01/27/22 12/21/23 01/04/24 History naloxone 4 mg/actuation nasal 1 spray intranasal DAILY PRN 01/27/22 12/21/23 Unknown History spray (Narcan) Opioid Overdose omeprazole 40 mg capsule,delayed 40 mg PO DAILY 01/27/22 12/21/23 01/04/24 History release rosuvastatin 10 mg tablet 10 mg PO DAILY 01/27/22 12/21/23 Unknown History sildenafil 25 mg tablet 25 mg PO DIRECTED 01/27/22 12/21/23 Unknown History sulfasalazine 500 mg 1,500 mg PO BID 01/27/22 12/21/23 01/04/24 History tablet,delayed release trazodone 50 mg tablet 50 mg PO BEDTIME 01/27/22 12/21/23 Unknown History potassium chloride 10 mEq 10 meq PO BID 08/20/22 12/21/23 Unknown History tablet,extended release(part/cryst) (Klor-Con M) hydromorphone 4 mg tablet 2 tab PO DAILY PRN pain 10/21/22 12/21/23 10/21/22 History duloxetine 40 mg capsule,delayed 40 mg PO BID 12/21/23 12/21/23 01/04/24 History release fentanyl 100 mcg/hr transdermal 1 patch topical Q3D 12/21/23 12/21/23 Unknown History patch leflunomide 20 mg tablet 20 mg PO DAILY 01/04/24 01/04/24 11/03/23 History metoprolol succinate 50 mg 50 mg PO DAILY 01/04/24 01/04/24 01/04/24 History tablet,extended release 24 hr Exam Airway Mallampati Class: II TM Dist: >3cm Neck ROM: Full Denture: Upper Partial: Lower Loose/Missing/Broken Teeth: Yes, Upper and Lower (B = Broken; M = Missing; L = Loose; C = Cap) Heart: RRR Lungs: CTA Assessment and Plan Assessment Anesthesia Assessment: Anesthesia Plan Discussed Final Anesthetic Review History of Problems with Anesthesia: No NPO: Yes ASA Class: III Final Preanesthetic Review: Meds/Allgs Chart Reviewed, Consent Obtained/Reviewed and Anes Risks/Benef Reviewed Patient Risk: Intermediate Procedure Risk: Intermediate Anesthetic Plan Anesthetic Plan: GA Disposition: Standard PACU
[2024-01-04] VITALS (8 sets, daily range): BP systolic 121–154; BP diastolic 59–87; PULSE 84–92; RESP 12–18; TEMP 36.1–36.7; O2SAT 97–99; BMI 22.7
--- NOTE | ~2024-01-04 | FL_ITS ---
EXAMINATION: XR FLUOROSCOPY WITH IMAGES CLINICAL INFORMATION: Status-post C4-C5 and C5-C6 cervical decompressions. COMPARISON: Cervical spine radiographs dated 10/08/2023. TECHNIQUE: Fluoroscopy Supervised By: Dr. Ramo Spencer. Fluoroscopy Time: 0.7 seconds. Cumulative Dose: 0.1122 mGy. DAP: 0.0488 Gycm2. Images: 1. FINDINGS: The submitted image shows a surgical probe directed at the cervical posterior elements at approximately the C5 level. FL/FL guidance in OR IMPRESSION: Intraoperative fluoroscopic guidance is provided during cervical decompression surgery. Please see the patient's Operative Report for full procedural details.
[2024-01-04] MEDS: Lactated Ringers 1,000 ML 100 ML IVCONT (07:26)
[2024-01-04 07:38] LABS: Hematocrit 42.9 % (42.0-52.0); Hemoglobin 14.5 g/dl (14.0-18.0); Mean Corpuscular HGB Conc 33.8 g/dl (31.0-36.0); Mean Corpuscular Hemoglobin 32.5 pg (27.0-33.0); Mean Corpuscular Volume 96.2 fL (80.0-98.0); Mean Platelet Volume 9.6 fL (9.4-12.4); Platelet Count 203 X10*3/uL (160-400); Red Blood Count 4.46 X10*6/uL (4.60-5.80); Red Cell Distribution Width 12.3 % (11.0-16.0); White Blood Count 5.2 X10*3/uL (4.8-10.8)
[2024-01-04 07:51] LABS: Anion Gap 10 (12-20); Blood Urea Nitrogen 9 mg/dL (9-16); Calcium 9.1 mg/dL (8.4-10.2); Carbon Dioxide 27 mmol/L (22-29); Chloride 106 mmol/L (96-108); Estimated Glomerular Filt Rate > 60; Glucose Fasting 102 mg/dL (60-99); Potassium 4.2 mmol/L (3.3-5.1); Sodium 139 mmol/L (135-145)
[2024-01-04] MEDS: methocarbamoL 750 MG TABLET PO (07:56)
[2024-01-04] MEDS: Gabapentin 300 MG CAPSULE PO (07:56)
--- NOTE | 2024-01-04 09:00 | MHC.SHP ---
Pre-Procedural Eval Section A - 24 Hr Update-Section A only Date of Service: 01/04/24 Section B - Complete if H&P > 30 days Chief Complaint: Other symptoms and signs involving the musculoskel Allergies: Allergies Allergy/AdvReac Type Severity Reaction Status Date / Time No Known Allergies Allergy Verified 01/04/24 07:12 Review of Systems Sugical H&P ROS: Negative: Constitution, Cardiovascular, Respiratory, Neurological, Psychiatric, Hem-Onc, Allergic/Immunologic, Gastrointestinal, Genitourinary, Musculoskeletal, Integumentary, Endocrine and Eyes/Ears/Nose/Throat Exam Surgical H&P Exam: Not Evaluated: HEENT, Not Evaluated: Heart, Not Evaluated: Lungs, Not Evaluated: Extremities, Not Evaluated: Abdomen, Not Evaluated: Skin and Not Evaluated: Neurological Plan Cervical laminectomy C5-C6, possible C4 Time Spent With Patient Time: Total time managing care of this patient today ____ minutes.
--- NOTE | 2024-01-04 09:28 | PC.NURSE ---
operating room nurse, radha campa, and author verified that patient has a 100mg fentanyl patch to right upper deltoid. initials from both nurses noted on preop record next to documentation of this.
--- NOTE | 2024-01-04 10:54 | W.PM.OPN ---
Operative Note Operative Note Date of Service: 01/04/24 Narrative: Preoperative Diagnosis: cervical myelopathy Operation: C5, C6 laminectomy Consent Informed Consent was obtained for this operation. I have explained the nature, purpose and benefits of the operation. I have discussed the risks and benefit of the operation including possible complications or adverse events with patient/family. Alternative(s) were discussed with the patient with their relative benefits and risks as well as the consequences of not accepting the operation were included in obtaining consent. Surgeon: DEB FELTON MD, PHD Procedure Assisted By: Lars Whitney Description of Procedure This patient is suffering from cervical myelopathy with spinal cord compression at the C5-C6 level on MRI. He was offered a posterior C5 and C6 cervical laminectomy to make sure that the spinal cord has the most space for recover. The patient was offered a decompression. The procedure complications were explained. The patient was consented. The patient was brought to the operating room and endotracheally intubated. The patient was turned in prone position on the gel rolls with the head fixated in Jama. Prep and drape was done followed by timeout. a midcervical incision was made. Dissection was carried down the midline to avoid blood loss. The paravertebral muscles were released to expose the C5-C6 laminae in preparation for the laminectomy. A Leksell was used to perform a partial of C5 and C6 laminectomy. An x-ray confirmed the correct levels. A # 2. and 3 Kerrison were used to complete the laminectomy. The laminectomy was extended laterally near flush with the pedicles. This resulted in good decompression of the spinal cord. Extensive hemostasis was done after which the physician metal moulder's assistant closed the fascia and subcutaneous layer with 2-0 Vicryl. [place] were used to approximate the incision. All sponge and needle counts were correct. The Jama was removed. Patient was extubated and transported in a stable base to the recover room Anesthesia: General Estimated Blood Loss (ml): 50 mL Duration of Surgery: Under 60 Minutes Postoperative Plan: Discharge to home
--- NOTE | 2024-01-04 10:56 | PM.DS ---
DS: Providers Provider Date of Service: 01/04/24 Date of discharge: 01/04/24 Primary care physician: Ursula Dubois NP Admitting clinician: Remy Spencer DS: Diagnosis Discharge Diagnosis (1) Cervical myelopathy: Status: Acute DS: Summary Time Attestation Discharge coordination time: Less than 30 minutes Quality: Safe Use of Opioids Does Pt have an Active Cancer Diagnosis on the Problem List?: No Quality: Stroke Does the patient have a stroke diagnosis?: No Physical Exam Vital Signs: Vital Signs: Last Vital Signs Temp 98.1 F 01/04/24 07:25 Pulse 87 01/04/24 07:25 Resp 18 01/04/24 07:25 BP 154/87 H 01/04/24 07:25 Pulse Ox 99 01/04/24 07:25 O2 Del Method Room Air 01/04/24 07:25 BMI result Body Mass Index 22.7 DS: Data Data Completed and Pending Labs on day of discharge: Laboratory Results - last 24 hr 01/04/24 07:20 WBC 5.2 RBC 4.46 L Hgb 14.5 Hct 42.9 MCV 96.2 MCH 32.5 MCHC 33.8 RDW 12.3 Plt Count 203 MPV 9.6 Absolute Nucleated RBC 0.000 Nucleated RBC % (auto) 0.0 Sodium 139 Potassium 4.2 Chloride 106 Carbon Dioxide 27 Anion Gap 10 L BUN 9 Creatinine 0.98 Estim Creat Clear Calc 67.0 Estimated GFR > 60 Fasting Glucose 102 H Calcium 9.1 Discharge Plan Discharge Patient Disposition: Home, Self-Care Referrals: Ursula Dubois NP [Primary Care Provider] - 1 Week Discharge Medications: New hydromorphone [Dilaudid] 2 mg tablet 2 mg PO Q6H Qty: 30 0RF Rx Instructions: Partial Fill upon patient request. sulfamethoxazole-trimethoprim [Bactrim DS] 800-160 mg tablet 1 tab PO BID 3 Days Qty: 6 0RF tizanidine 2 mg tablet 2 mg PO Q8H PRN (Reason: muscle pain) Qty: 30 0RF Continued fentanyl 100 mcg/hr patch 72 hour 1 patch topical Q3D duloxetine 40 mg capsule,delayed release(DR/EC) 40 mg PO BID metoprolol succinate 50 mg tablet extended release 24 hr 50 mg PO DAILY hydroxychloroquine 200 mg tablet 200 mg PO BID sulfasalazine 500 mg tablet,delayed release (DR/EC) 1,500 mg PO BID sildenafil 25 mg tablet 25 mg PO DIRECTED amlodipine 10 mg tablet 10 mg PO DAILY omeprazole 40 mg capsule,delayed release(DR/EC) 40 mg PO DAILY trazodone 50 mg tablet 50 mg PO BEDTIME rosuvastatin 10 mg tablet 10 mg PO DAILY naloxone [Narcan] 4 mg/actuation spray,non-aerosol 1 spray intranasal DAILY PRN (Reason: Opioid Overdose) potassium chloride [Klor-Con M10] 10 mEq tablet,ER particles/crystals 10 meq PO BID Held leflunomide 20 mg tablet 20 mg PO DAILY Hold Instructions: Resume on 01/18/24. you may resume in 2 weeks if your wound is healed and after we remove isreal Eliquis 2.5 mg tablet 2.5 mg PO BID Hold Instructions: Resume on 01/07/24. resume 3 days after surgery Discontinued hydromorphone 4 mg tablet 2 tab PO DAILY PRN (Reason: pain) Discharge Orders: Discharge Order (Routine); Ordered 01/04/24 Ordered By: Lars Whitney Diet: Advance to usual diet Activity on Discharge: As tolerated Activity Restrictions/Additional Instructions: After your spinal surgery we ask you to observe the following restrictions/guidelines: Activity: It is normal to feel some discomfort as you increase your activity, but that will improve with time. We ask you avoid heavy lifting or acitivities that cause pain. As a general rule, 8lbs is a safe limit for lifting right after surgery. Walk as much as you feel comfortable but not to exhaustion. You will feel extra tired the first few days after surgery. Stay well hydrated. It is OK to walk up and down stairs You may return to driving when you are off narcotics (such as vicodin, oxycodone, dilaudid, etc), and you are back to normal functional capacity. If you have any concerns please check with office before driving. Return to work is specific to each patient and each surgery, so please speak with your doctor/PA at first follow up. Please bring paperwork such as FMLA at that time if you need it filled out. Medications: We have given you a post operative antiobiotic to take for 3 days as a precaution You may resume Eliquis in 3 days after surgery You may not resume Leflunomide until we have removed isreal in 2 weeks and ensure wound is well healed For optimum pain control, it is best to start with a combination of 500 mg of Tylenol every 4 hours with 600 mg of Motrin every 8 hours, and use narcotics as needed in between for breakthrough pain. We will give you a short supply of narcotics after surgery (usually one weeks worth). If you need more please call the office but do not use more than prescribed. You will need to give our office 48 hours notice if you need narcotics refilled and we do not fill narcotics on weekends or evenings. If you are on a narcotic, it is a good idea to take a stool softener such as colace or senna to avoid constipation If you take blood thinner such as aspirin, Plavix, Coumadin, Effient, Eliquis etc for conditions such as Afib, DVT, Pulmonary embolus, coronary disease, stents etc please speak with your surgeon about specific details as to when you can resume these medications. You can resume NSAIDs on post op day 1 (eg: Motrin, Naproxen, etc). Follow up: Please call the office, , after surgery to arrange a 3 week follow up for wound check. Wound Care: You may remove your dressing on the first day after surgery. ?You may ?leave open to air. There are isreal in your wound that will need to come out in 2 weeks IT IS NORMAL FOR THE WOUND TO OOZE OR BE BLOODY FOR A FEW DAYS AFTER SURGERY. ?IF THIS HAPPENS JUST PLACE NEW DRESSING OVER IT TO AVOID STAINING CLOTHES. You may shower on post op day # 1 We ask that you do not let the water soak the wound. If it does get wet, just towel dry lightly. Please do not scrub your incision or place any type of chemical/ointment on the wound. No tub baths, pools or jacuzzis for one month. If you have any leaking or redness from your wound, or fevers, please call office
--- NOTE | 2024-01-04 11:49 | PM.DS ---
DS: Providers Provider Date of Service: 01/04/24 Primary care physician: Ursula Dubois NP DS: Diagnosis Discharge Diagnosis (1) Cervical myelopathy: Status: Acute DS: Summary Time Attestation Discharge coordination time: Less than 30 minutes Quality: Safe Use of Opioids Does Pt have an Active Cancer Diagnosis on the Problem List?: No Quality: Stroke Does the patient have a stroke diagnosis?: No Physical Exam Vital Signs: Vital Signs: Last Vital Signs Temp 97 F 01/04/24 11:00 Pulse 91 01/04/24 11:05 Resp 14 01/04/24 11:05 BP 135/87 01/04/24 11:05 Pulse Ox 98 01/04/24 11:05 O2 Del Method Room Air 01/04/24 11:05 O2 Flow Rate 6 01/04/24 11:00 BMI result Body Mass Index 22.7 DS: Data Data Completed and Pending Labs on day of discharge: Laboratory Results - last 24 hr 01/04/24 07:20 WBC 5.2 RBC 4.46 L Hgb 14.5 Hct 42.9 MCV 96.2 MCH 32.5 MCHC 33.8 RDW 12.3 Plt Count 203 MPV 9.6 Absolute Nucleated RBC 0.000 Nucleated RBC % (auto) 0.0 Sodium 139 Potassium 4.2 Chloride 106 Carbon Dioxide 27 Anion Gap 10 L BUN 9 Creatinine 0.98 Estim Creat Clear Calc 67.0 Estimated GFR > 60 Fasting Glucose 102 H Calcium 9.1 Discharge Plan Discharge Patient Disposition: Home, Self-Care Referrals: Ursula Dubois NP [Primary Care Provider] - 1 Week Discharge Medications: New sulfamethoxazole-trimethoprim [Bactrim DS] 800-160 mg tablet 1 tab PO BID 3 Days Qty: 6 0RF tizanidine 2 mg tablet 2 mg PO Q8H PRN (Reason: muscle pain) Qty: 30 0RF hydromorphone [Dilaudid] 2 mg tablet 2 mg PO Q6H PRN (Reason: pain) Qty: 30 0RF Rx Instructions: Partial Fill upon patient request. Continued fentanyl 100 mcg/hr patch 72 hour 1 patch topical Q3D duloxetine 40 mg capsule,delayed release(DR/EC) 40 mg PO BID metoprolol succinate 50 mg tablet extended release 24 hr 50 mg PO DAILY hydroxychloroquine 200 mg tablet 200 mg PO BID sulfasalazine 500 mg tablet,delayed release (DR/EC) 1,500 mg PO BID sildenafil 25 mg tablet 25 mg PO DIRECTED amlodipine 10 mg tablet 10 mg PO DAILY omeprazole 40 mg capsule,delayed release(DR/EC) 40 mg PO DAILY trazodone 50 mg tablet 50 mg PO BEDTIME rosuvastatin 10 mg tablet 10 mg PO DAILY naloxone [Narcan] 4 mg/actuation spray,non-aerosol 1 spray intranasal DAILY PRN (Reason: Opioid Overdose) potassium chloride [Klor-Con M10] 10 mEq tablet,ER particles/crystals 10 meq PO BID Held leflunomide 20 mg tablet 20 mg PO DAILY Hold Instructions: Resume on 01/18/24. you may resume in 2 weeks if your wound is healed and after we remove isreal Eliquis 2.5 mg tablet 2.5 mg PO BID Hold Instructions: Resume on 01/07/24. resume 3 days after surgery Discontinued hydromorphone 4 mg tablet 2 tab PO DAILY PRN (Reason: pain) Discharge Orders: Discharge Order (Routine); Ordered 01/04/24 Ordered By: Lars Whitney Diet: Advance to usual diet Activity on Discharge: As tolerated Activity Restrictions/Additional Instructions: After your spinal surgery we ask you to observe the following restrictions/guidelines: Activity: It is normal to feel some discomfort as you increase your activity, but that will improve with time. We ask you avoid heavy lifting or acitivities that cause pain. As a general rule, 8lbs is a safe limit for lifting right after surgery. Walk as much as you feel comfortable but not to exhaustion. You will feel extra tired the first few days after surgery. Stay well hydrated. It is OK to walk up and down stairs You may return to driving when you are off narcotics (such as vicodin, oxycodone, dilaudid, etc), and you are back to normal functional capacity. If you have any concerns please check with office before driving. Return to work is specific to each patient and each surgery, so please speak with your doctor/PA at first follow up. Please bring paperwork such as FMLA at that time if you need it filled out. Medications: We have given you a post operative antiobiotic to take for 3 days as a precaution You may resume Eliquis in 3 days after surgery You may not resume Leflunomide until we have removed isreal in 2 weeks and ensure wound is well healed For optimum pain control, it is best to start with a combination of 500 mg of Tylenol every 4 hours with 600 mg of Motrin every 8 hours, and use narcotics as needed in between for breakthrough pain. We will give you a short supply of narcotics after surgery (usually one weeks worth). If you need more please call the office but do not use more than prescribed. You will need to give our office 48 hours notice if you need narcotics refilled and we do not fill narcotics on weekends or evenings. If you are on a narcotic, it is a good idea to take a stool softener such as colace or senna to avoid constipation If you take blood thinner such as aspirin, Plavix, Coumadin, Effient, Eliquis etc for conditions such as Afib, DVT, Pulmonary embolus, coronary disease, stents etc please speak with your surgeon about specific details as to when you can resume these medications. You can resume NSAIDs on post op day 1 (eg: Motrin, Naproxen, etc). Follow up: Please call the office, , after surgery to arrange a 3 week follow up for wound check. Wound Care: You may remove your dressing on the first day after surgery. ?You may ?leave open to air. There are isreal in your wound that will need to come out in 2 weeks IT IS NORMAL FOR THE WOUND TO OOZE OR BE BLOODY FOR A FEW DAYS AFTER SURGERY. ?IF THIS HAPPENS JUST PLACE NEW DRESSING OVER IT TO AVOID STAINING CLOTHES. You may shower on post op day # 1 We ask that you do not let the water soak the wound. If it does get wet, just towel dry lightly. Please do not scrub your incision or place any type of chemical/ointment on the wound. No tub baths, pools or jacuzzis for one month. If you have any leaking or redness from your wound, or fevers, please call office
--- NOTE | 2024-01-04 12:45 | PC.NURSE ---
patient and aware to stop at pharmacy to [place] picker pain medication as it [place] [facility].
== END 2024-01-04 12:46 | disposition home or self-care (01) ==
PROVIDERS: Nurse Practitioner; PCP Nurse Practitioner Adult Health; Visit Provider Neurological Surgery
PROC: (CPT 63045; principal; 2024-01-04 09:20)
DX: M50.022 Cervical disc disorder at C5-C6 level with myelopathy (principal); J44.9 Chronic obstructive pulmonary disease, unspecified; E78.00 Pure hypercholesterolemia, unspecified; I74.9 Embolism and thrombosis of unspecified artery; I10 Essential (primary) hypertension
CPT/HCPCS: 63045; 63048; 36415; 80048; 85027; J0131; J0690; J1100; J2250; J2371; J2405; J2704; J3010

== ENCOUNTER → 2024-01-04 06:52 | Outpatient (BNV) | payer MEDICARE, SELFPAY | PROVIDERS: PCP Nurse Practitioner Adult Health; Visit Provider Neurological Surgery | DX: M50.022 Cervical disc disorder at C5-C6 level with myelopathy (principal) | CPT/HCPCS: 63045; 63048; 99499 ==

== ENCOUNTER 2024-01-19 09:09 | Outpatient (AMB) | payer MEDICARE, SELFPAY ==
--- NOTE | 2024-01-19 09:32 | HO.SPINEOV ---
Intake Intake Visit Reasons: 2 weeks/suture removal Intake Note: Mr. Hernandez is here today for 2 week/suture removal. Director Corporate Compliance Required: No Allergies No Known Allergies Allergy (Verified 01/04/24 07:12) Assessment & Plan Assessment & Plan (1) Cervical myelopathy: Code(s): G95.9 - Disease of spinal cord, unspecified Plan Procedure: C5, C6 laminectomy Enrike comes in today after having a C5, C6 laminectomy for staple removal. He reports that his upper extremities feel better when compared to how they felt prior to surgery. He states he feels they are little bit stronger but has not entirely sure how much. Overall he has done very well since his surgery, and reports he would like to be evaluated during his next visit for his lumbar spine concerns. He reports he did finish his 2 day course of Bactrim after his surgery. I removed the isreal on Enrike's posterior neck today and he tolerated the procedure well. There was very minimal redness, with no edema or erythema. The incision site is approximated well. There is no serosanguineous leakage or other concerns. We will follow-up with the patient in 6 weeks. Onur Spencer MD,PhD [facility] Coding Level of Care Code Global (28698) Diagnoses Cervical myelopathy G95.9
== END 2024-01-19 09:38 | disposition home or self-care (01) ==
PROVIDERS: PCP Nurse Practitioner Adult Health; Visit Provider Physician Assistant
DX: G95.9 Disease of spinal cord, unspecified (principal)
CPT/HCPCS: 99024

== ENCOUNTER → 2024-01-19 09:09 | Outpatient (BNVA) | payer MEDICARE, SELFPAY | PROVIDERS: PCP Nurse Practitioner Adult Health; Visit Provider Physician Assistant | DX: Z48.89 Encounter for other specified surgical aftercare (principal); Z48.02 Encounter for removal of sutures | CPT/HCPCS: 99212 ==

== ENCOUNTER 2024-03-02 13:41 | Outpatient (AMB) | payer MEDICARE, SELFPAY ==
--- NOTE | 2024-03-02 13:42 | HO.SPINEOV ---
Intake Visit Reasons: 2nd post op Intake Note: Mr. Hernandez is here today for his 2nd post op appointment. Supervising Librarian Required: No Allergies No Known Allergies Allergy (Verified 03/02/24 13:43) Assessment & Plan Assessment & Plan (1) Scoliosis (and kyphoscoliosis), idiopathic: Code(s): M41.20 - Other idiopathic scoliosis, site unspecified Category: Medical Plan Mr Hernandez came in today in follow-up. He is a patient known to us from cervical laminectomy for myelopathy but was originally here for presentation of back pain and bilateral leg pain in setting of 2 previous lumbar decompressions done by at [facility]. Ultimately he failed those surgeries because of scoliotic curvature which was worsening over time after the surgeries. Dr. Rodriguez had nothing more he could offer him, and the patient was referred to us by his PCP. Please see the 1st initial office note for his presentation and all of his conservative treatments. Finally, he is recovered from the cervical laminectomy and would like to consider back surgery at this time. Dr. Spencer and I reviewed his imaging done at [facility], as well as his standing x-rays. He has a CT and an MRI at [facility] showing the extensive scoliotic curvature extending from L2-L5, and even a slight lateral listhesis of L1 on L2. After reviewing the imaging, we think the best approach would be an L2-3, L3-4 oblique lumbar interbody fusion so we can get some lordotic curvature with the bigger cages. This would also be optimum given his suboptimal bone quality. We can not do oblique lumbar approach at the L4-5 level because there is a calcified branch of the iliac artery that is running across the disc space at this level so we will choose a right-sided L4-5 trans Kambin approach here. We will also leave the option open of doing a trans Kambin L1-2 interbody fusion if we do not see a satisfactory reversal of the curvature or if we see worsening of the curvature at that level during the time of surgery. The patient will stop his Arava for 2 months in order to allow it to clear out of his system, and will stop his Eliquis 3 days prior to surgery as he did for his previous operation on his neck. Pt was given risk and benefits of surgery including but not limited to bleeding, infection, hematoma , nerve injury,durotomy, weakness,bowel/bladder injury, persistent pain, persistent pain, hardware failure, nerve irritation, as well as the option to continue with conservative treatment and patient wishes to proceed with surgery. Pt is aware they should stop their motrin, aspirin 7 days prior to surgery. All questions were answered to the best of our ability. If there is anything about this patients medical history that we have overlooked or concerns you have about us proceeding with surgery we would appreciate any input you can offer. Total amount of time spent in this visit was 40 minutes in discussion of symptoms, lumbar imaging results and subsequent plan of care Lars Spencer MD,PhD [facility] Coding Level of Care Code Est Pt Level 5 (31768) Diagnoses Scoliosis (and kyphoscoliosis), idiopathic M41.20
== END 2024-03-02 15:38 | disposition home or self-care (01) ==
PROVIDERS: PCP Nurse Practitioner Adult Health; Visit Provider Physician Assistant
DX: M41.20 Other idiopathic scoliosis, site unspecified (principal)
CPT/HCPCS: 99024

== ENCOUNTER → 2024-03-02 13:41 | Outpatient (BNVA) | payer MEDICARE, SELFPAY | PROVIDERS: PCP Nurse Practitioner Adult Health; Visit Provider Physician Assistant | DX: M41.26 Other idiopathic scoliosis, lumbar region (principal) | CPT/HCPCS: 99212 ==

== ENCOUNTER 2024-05-16 05:57 | Inpatient (IN) | payer MEDICARE, SELFPAY ==
[2024-05-02 10:20] VITALS: BP 125/76; PULSE 91; RESP 16; O2SAT 97; BMI 22.3
[2024-05-02 11:57] LABS: Hematocrit 42.8 % (42.0-52.0); Hemoglobin 14.6 g/dl (14.0-18.0); Mean Corpuscular HGB Conc 34.1 g/dl (31.0-36.0); Mean Corpuscular Hemoglobin 32.9 pg (27.0-33.0); Mean Corpuscular Volume 96.4 fL (80.0-98.0); Platelet Count 223 X10*3/uL (160-400); Red Blood Count 4.44 X10*6/uL (4.60-5.80); Red Cell Distribution Width 12.3 % (11.0-16.0); White Blood Count 6.9 X10*3/uL (4.8-10.8)
[2024-05-02 12:31] LABS: Anion Gap 11 (12-20); Blood Urea Nitrogen 9 mg/dL (9-16); Carbon Dioxide 27 mmol/L (22-29); Chloride 103 mmol/L (96-108); Creatinine Clr Calc Pharmacy 77.9; Estimated Glomerular Filt Rate > 60; Glucose Random 92 mg/dL (60-115); Potassium 4.2 mmol/L (3.3-5.1); Sodium 137 mmol/L (135-145)
[2024-05-16] VITALS (11 sets, daily range): BP systolic 115–178; BP diastolic 65–97; PULSE 74–100; RESP 16–20; TEMP 36.1–36.9; O2SAT 95–100; BMI 22.3
--- NOTE | ~2024-05-16 | FL_ITS ---
EXAMINATION: XR FLUOROSCOPY WITH IMAGES CLINICAL INFORMATION: Lumbar ago with ORIF COMPARISON: Lumbar spine x-ray on 07/30/2023 TECHNIQUE: Fluoroscopy Supervised By: Johanna Fluoroscopy Time: 4 minutes 25 seconds. Cumulative Dose: 102.594 mGy. DAP: 39.431 Gycm2. Images: 8. FINDINGS: Fluoroscopy performed during lumbar fusion at L3-S1. FL/FL guidance in OR IMPRESSION: Fluoroscopy performed in the OR. Please see operative report for additional information.
--- NOTE | ~2024-05-16 | XR_ITS ---
EXAMINATION: XR LUMBOSACRAL SPINE CLINICAL INFORMATION: Postoperative COMPARISON: 07/30/2023 TECHNIQUE: Three views of the lumbosacral spine. Note that there are no images labeled as flexion or extension views. FINDINGS: There are well-positioned interbody fusion devices at L3-L4, L4-5 and L5-S1. Bilateral transpedicular screws and posterior fusion rods at L3-S1. The hardware appears to be well-positioned. Chronic mild-to moderate degenerative narrowing of disc space and vertebral osteophyte formation at L2-L3. Levocurvature of 8 degrees is measured from the superior endplate of L1 to the inferior plate of L5 (compared to 22 degrees of levoscoliosis on preoperative images from 07/30/2023). Anatomic alignment of lumbar vertebra is observed on the lateral view. No vertebral compression fractures. Sacrum and sacroiliac joints are unremarkable. There is atherosclerotic calcification of aorta and iliac arteries. 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 XR/XR lumbar spine 2-3V IMPRESSION: * Status post L3-S1 spinal fusion. No evidence of hardware loosening. * No acute abnormalities in the lumbar spine. No vertebral compression fractures. * Significant interval reduction of levocurvature of the lumbar spine after surgery.
[2024-05-16] MEDS: Gabapentin 300 MG CAPSULE PO ×3 (06:20→20:05)
[2024-05-16] MEDS: Lactated Ringers 1,000 ML 100 ML IVCONT (06:20)
[2024-05-16] MEDS: methocarbamoL 750 MG TABLET PO (06:32)
--- NOTE | 2024-05-16 07:10 | HO.ANESPROP2 ---
Documented by User: Kiara Allen NP 05/15/24 10:02 HPI - Anesthesia Eval Consult details Narrative: 69yo M for L2-3,L3-4 Oblique Lumbar Interbody Fusion,Right L4-5 TKLIF, poss L1-2 TKLIF, 05/16/24 s/p C4-5, C5-6 Posterior Cervical Decomp 12/2023 with GA-ETT 7 Medically cleared prior to cervical, no change in status No recent illness No CP with minimal activity r/t pain. Fentanyl patch - chronic pain d/t RA Eliquis for hx unprovoked bilat PE's 2016 Chronic SOB with recent extensive pulmo w/u (Chest CT, echo, pharm nuc stress all unremarkable per clearance note). ILD likely d/t RA. Pt reports some improvement PMFSH Active Problems Active Problems: All Active Problems Cervical myelopathy (Acute) Upper extremity weakness (Acute) Scoliosis (and kyphoscoliosis), idiopathic (Acute) Lumbar spondylosis (Acute) Bilateral chronic knee pain (Acute) History of total bilateral knee replacement (Acute ~2014) Primary osteoarthritis of knees, bilateral (Acute) Past Medical History Medical History (Updated 05/02/24 @ 10:11 by Ricarda Amos RN) Hx of staphylococcal infection Habitual snoring On beta berry at home On anticoagulant therapy Interstitial lung disease Insomnia GI bleed due to NSAIDs Bladder wall thickening BPH (benign prostatic hyperplasia) Sciatica of left side associated with disorder of lumbar spine Seropositive rheumatoid arthritis Pyogenic arthritis Hyperlipidemia Elevated glucose level Degenerative disc disease, lumbar Chronic ulcer of great toe of left foot COPD (chronic obstructive pulmonary disease) Arthritis Back pain Pulmonary embolism GERD (gastroesophageal reflux disease) Elevated cholesterol HTN (hypertension) Shortness of breath Erectile dysfunction Family History Family history of problems with anesthesia: No Surgical History Surgical History (Updated 05/02/24 @ 10:13 by Ricarda Amos RN) Hx of tonsillectomy Hx of cervical spine surgery Hx of arthroscopy of knee History of prostate surgery History of carpal tunnel release History of carpal tunnel release of both wrists History of esophagogastroduodenoscopy (EGD) History of bronchoscopy History of total bilateral knee replacement Hx of surgical amputation of finger H/O colonoscopy History of back surgery (~2018) History of elbow surgery (~2017) History of Problems with Anesthesia: No Social History Social History Are you a primary hospice care consultant to a significant other at home: No Do you presently have visiting nurse or other home services: No Alcohol intake: current Alcohol intake frequency: does not drink Alcohol type: beer Patient Tobacco Use Status: Former Tobacco user Use of substances other than those prescribed or required for medical reasons: No Have you been hit, kicked, punched, or otherwise hurt by someone within the past year? If so, by whom?: No Are you DNR?: No Advance Directives: No Advance Directives Information Provided: Yes Advance Directives on File: No How much weight loss: 14-23 pounds Eating poorly because of decreased appetite: Yes Poor oral hygiene: Yes (full upper and partial lower denture) Meds Allergies Allergy/AdvReac Type Severity Reaction Status Date / Time No Known Allergies Allergy Verified 03/02/24 13:43 Home Medications ?Medication ?Instructions ?Recorded ?Confirmed ?Last Taken ?Type amlodipine 10 mg tablet 10 mg PO DAILY 01/27/22 05/02/24 05/16/24 History apixaban 2.5 mg tablet (Eliquis) 2.5 mg PO BID 01/27/22 05/16/24 05/12/24 History hydroxychloroquine 200 mg tablet 200 mg PO BID 01/27/22 05/02/24 05/15/24 History naloxone 4 mg/actuation nasal 1 spray intranasal DAILY PRN 01/27/22 05/02/24 Unknown History spray (Narcan) Opioid Overdose omeprazole 40 mg capsule,delayed 40 mg PO DAILY 01/27/22 05/02/24 05/16/24 History release rosuvastatin 10 mg tablet 10 mg PO DAILY 01/27/22 05/02/24 05/16/24 History sildenafil 25 mg tablet 100 mg PO DIRECTED 01/27/22 05/02/24 05/15/24 History sulfasalazine 500 mg 1,500 mg PO BID 01/27/22 05/02/24 05/15/24 History tablet,delayed release trazodone 50 mg tablet 50 mg PO BEDTIME 01/27/22 05/02/24 05/15/24 History duloxetine 40 mg capsule,delayed 40 mg PO BID 12/21/23 05/02/24 05/16/24 History release fentanyl 100 mcg/hr transdermal 1 patch topical Q3D 12/21/23 05/02/24 05/14/24 History patch leflunomide 20 mg tablet 20 mg PO DAILY 05/02/24 05/02/24 03/13/24 History potassium chloride 10 mEq 10 meq PO BID 05/02/24 05/02/24 05/15/24 History tablet,extended release(part/cryst) (Klor-Con M) Exam Height,Weight and Vital Signs: Height 5 ft 8 in Weight 66.678 kg Last Vital Signs Pulse 91 05/02/24 10:20 Resp 16 05/02/24 10:20 BP 125/76 05/02/24 10:20 Pulse Ox 97 05/02/24 10:20 O2 Del Method Room Air 05/02/24 10:20 Pertinent Lab Results Pertinent Lab Results: Lab Results 05/02/24 05/02/24 Range/Units 11:05 11:09 WBC 6.9 (4.8-10.8) X10*3/uL RBC 4.44 L (4.60-5.80) X10*6/uL Hgb 14.6 (14.0-18.0) g/dl Hct 42.8 (42.0-52.0) % MCV 96.4 (80.0-98.0) fL MCH 32.9 (27.0-33.0) pg MCHC 34.1 (31.0-36.0) g/dl RDW 12.3 (11.0-16.0) % Plt Count 223 (160-400) X10*3/uL MPV 10.0 (9.4-12.4) fL Absolute Nucleated RBC 0.000 (0.0-0.012) X10*3/uL Nucleated RBC % (auto) 0.0 (0.0-0.2) /100WBC Sodium 137 (135-145) mmol/L Potassium 4.2 (3.3-5.1) mmol/L Chloride 103 (96-108) mmol/L Carbon Dioxide 27 (22-29) mmol/L Anion Gap 11 L (12-20) BUN 9 (9-16) mg/dL Creatinine 0.82 (0.5-1.4) mg/dL Estim Creat Clear Calc 77.9 Estimated GFR > 60 Random Glucose 92 (60-115) mg/dL Calcium 9.0 (8.4-10.2) mg/dL Blood Type A Positive Antibody Screen NEGATIVE Narrative Narrative: EKG 07/[address]-T changes Airway Mallampati Class: II TM Dist: >3cm Neck ROM: Full Denture: Upper Partial: Lower Loose/Missing/Broken Teeth: Yes (lower missing), Upper and Lower (B = Broken; M = Missing; L = Loose; C = Cap) Heart: RRR Lungs: CTA Assessment and Plan Assessment Anesthesia Assessment: Anesthesia Plan Discussed and PAT Visit Final Anesthetic Review Family History of Problems with Anesthesia: No History of Problems with Anesthesia: No Documented by User: Caryn Ocampo DO 05/16/24 07:24 HPI - Anesthesia Eval Consult details Narrative: 69yo M for L2-3,L3-4 Oblique Lumbar Interbody Fusion,Right L4-5 TKLIF, poss L1-2 TKLIF, 05/16/24 s/p C4-5, C5-6 Posterior Cervical Decomp 12/2023 with GA-ETT 7 Medically cleared prior to cervical, no change in status No recent illness No CP with minimal activity r/t pain. Fentanyl patch - chronic pain d/t RA. 100 mcg/hr Eliquis for hx unprovoked bilat PE's 2016 Chronic SOB with recent extensive pulmo w/u (Chest CT, echo, pharm nuc stress all unremarkable per clearance note). ILD likely d/t RA. Pt reports some improvement PMFSH Past Medical History Medical History (Updated 05/02/24 @ 10:11 by Ricarda Amos RN) Hx of staphylococcal infection Habitual snoring On beta berry at home On anticoagulant therapy Interstitial lung disease Insomnia GI bleed due to NSAIDs Bladder wall thickening BPH (benign prostatic hyperplasia) Sciatica of left side associated with disorder of lumbar spine Seropositive rheumatoid arthritis Pyogenic arthritis Hyperlipidemia Elevated glucose level Degenerative disc disease, lumbar Chronic ulcer of great toe of left foot COPD (chronic obstructive pulmonary disease) Arthritis Back pain Pulmonary embolism GERD (gastroesophageal reflux disease) Elevated cholesterol HTN (hypertension) Shortness of breath Erectile dysfunction Family History Family history of problems with anesthesia: No Surgical History Surgical History (Updated 05/02/24 @ 10:13 by Ricarda Amos RN) Hx of tonsillectomy Hx of cervical spine surgery Hx of arthroscopy of knee History of prostate surgery History of carpal tunnel release History of carpal tunnel release of both wrists History of esophagogastroduodenoscopy (EGD) History of bronchoscopy History of total bilateral knee replacement Hx of surgical amputation of finger H/O colonoscopy History of back surgery (~2018) History of elbow surgery (~2018) History of Problems with Anesthesia: No Social History Social History Are you a primary hospice care consultant to a significant other at home: No Do you presently have visiting nurse or other home services: No Alcohol intake: current Alcohol intake frequency: does not drink Alcohol type: beer Patient Tobacco Use Status: Former Tobacco user Use of substances other than those prescribed or required for medical reasons: No Have you been hit, kicked, punched, or otherwise hurt by someone within the past year? If so, by whom?: No Are you DNR?: No Advance Directives: No Advance Directives Information Provided: Yes Advance Directives on File: No How much weight loss: 14-23 pounds Eating poorly because of decreased appetite: Yes Poor oral hygiene: Yes (full upper and partial lower denture) Meds Allergies Allergy/AdvReac Type Severity Reaction Status Date / Time No Known Allergies Allergy Verified 03/02/24 13:43 Home Medications ?Medication ?Instructions ?Recorded ?Confirmed ?Last Taken ?Type amlodipine 10 mg tablet 10 mg PO DAILY 01/27/22 05/02/24 05/16/24 History apixaban 2.5 mg tablet (Eliquis) 2.5 mg PO BID 01/27/22 05/16/24 05/12/24 History hydroxychloroquine 200 mg tablet 200 mg PO BID 01/27/22 05/02/24 05/15/24 History naloxone 4 mg/actuation nasal 1 spray intranasal DAILY PRN 01/27/22 05/02/24 Unknown History spray (Narcan) Opioid Overdose omeprazole 40 mg capsule,delayed 40 mg PO DAILY 01/27/22 05/02/24 05/16/24 History release rosuvastatin 10 mg tablet 10 mg PO DAILY 01/27/22 05/02/24 05/16/24 History sildenafil 25 mg tablet 100 mg PO DIRECTED 01/27/22 05/02/24 05/15/24 History sulfasalazine 500 mg 1,500 mg PO BID 01/27/22 05/02/24 05/15/24 History tablet,delayed release trazodone 50 mg tablet 50 mg PO BEDTIME 01/27/22 05/02/24 05/15/24 History duloxetine 40 mg capsule,delayed 40 mg PO BID 12/21/23 05/02/24 05/16/24 History release fentanyl 100 mcg/hr transdermal 1 patch topical Q3D 12/21/23 05/02/24 05/14/24 History patch leflunomide 20 mg tablet 20 mg PO DAILY 05/02/24 05/02/24 03/13/24 History potassium chloride 10 mEq 10 meq PO BID 05/02/24 05/02/24 05/15/24 History tablet,extended release(part/cryst) (Deanna Townsend) Exam Exam Date and Time: May 16, 2024 0710 Height,Weight and Vital Signs: Height 5 ft 8 in Weight 66.678 kg Last Vital Signs Pulse 91 05/02/24 10:20 Resp 16 05/02/24 10:20 BP 125/76 05/02/24 10:20 Pulse Ox 97 05/02/24 10:20 O2 Del Method Room Air 05/02/24 10:20 Vital Signs Pulse Rate 91 05/02/24 10:20 Respiratory Rate 16 05/02/24 10:20 Blood Pressure 125/76 05/02/24 10:20 Pulse Oximetry 97 05/02/24 10:20 Oxygen Delivery Method Room Air 05/02/24 10:20 Temperature 98.4 F 05/16/24 06:02 Pulse Rate 100 05/16/24 06:02 Respiratory Rate 20 05/16/24 06:02 Blood Pressure 134/80 05/16/24 06:02 Pulse Oximetry 96 05/16/24 06:02 Oxygen Delivery Method Room Air 05/16/24 06:02 Airway Mallampati Class: I TM Dist: >3cm Neck ROM: Full Denture: Upper Partial: Lower Loose/Missing/Broken Teeth: Yes (lower missing) Heart: S1S2 Lungs: CTAB Assessment and Plan Assessment Anesthesia Assessment: Anesthesia Plan Discussed and Chart Reviewed Final Anesthetic Review Family History of Problems with Anesthesia: No History of Problems with Anesthesia: No NPO: Yes ASA Class: III Final Preanesthetic Review: No Changes in Pt Med Stat, Meds/Allgs Chart Reviewed, Consent Obtained/Reviewed and Anes Risks/Benef Reviewed Patient Risk: Intermediate Procedure Risk: Intermediate Anesthetic Plan Anesthetic Plan: GA and Agree w/ Assess. and Plan Disposition: Standard PACU
--- NOTE | 2024-05-16 07:25 | MHC.SHP ---
Pre-Procedural Eval Section A - 24 Hr Update-Section A only Date of Service: 05/16/24 The patient is an INPATIENT: No Changes since office visit: No Cold of Flu in the past 2 weeks, No New Medical Problems, No Changes in Medication and No Patient answered all questions The patient has been examined within 24 hours of the surgical procedure. The History & Physical has been completed within 30 days and I have reviewed it.: No Section B - Complete if H&P > 30 days Chief Complaint: back pain Allergies: Allergies Allergy/AdvReac Type Severity Reaction Status Date / Time No Known Allergies Allergy Verified 03/02/24 13:43 Review of Systems Sugical H&P ROS: Negative: Constitution, Cardiovascular, Respiratory, Neurological, Psychiatric, Hem-Onc, Allergic/Immunologic, Gastrointestinal, Genitourinary, Musculoskeletal, Integumentary, Endocrine and Eyes/Ears/Nose/Throat Exam Surgical H&P Exam: Normal: HEENT, Normal: Heart, Normal: Lungs, Normal: Extremities, Normal: Abdomen, Normal: Skin and Normal: Neurological (patient awake, alert,oriented ) Plan Diagnosis/Plan: Unchanged L2-3, L3-4 Oblique lumbar interbody fusion, right L4-5 transkambin fusion, possible L1-2 transkambin fusion Time Spent With Patient Time: Total time managing care of this patient today __6__ minutes.
[2024-05-16] MEDS: ceFAZolin Sodium/Dextrose,Iso 2 GM/50 ML PIGGYBACK IV ×3 (08:00→19:40)
[2024-05-16] MEDS: Acetaminophen 1,000 MG/100 ML PIGGYBACK 400 MG IV ×3 (09:25→21:31)
--- NOTE | 2024-05-16 11:14 | P.OP_ITS ---
Operative Note Operative Note Date of Service: 05/16/24 Narrative: Preop Diagnosis: 1) Lumbar degenerative scoliosis Procedure: 1) L2-L3, L3-L4 discectomy, arthrodesis and implantation cage through an anterolateral, retroperitoneal approach 2) L4-L5 diskectomy, arthrodesis and implantation cage through an oblique lateral lumbar interbody fusion (Transkambin approach) 3) L2-3, L3-4, L4-5 posterolateral fusion and segmental instrumentation L2-L5 bilaterally 4) Allograft 5) Injection of 10 cc of Exparel at the bilateral L3 transverse process for a muscular erector spinae block and additional Exparel in paravertebral tissue for postop management Postprocedure diagnosis: 1) same as above Consent Informed Consent was obtained for this operation. I have explained the nature, purpose and benefits of the operation. I have discussed the risks and benefit of the operation including possible complications or adverse events with patient/family. Alternative(s) were discussed with the patient with their relative benefits and risks as well as the consequences of not accepting the operation were included in obtaining consent. Surgeon: DEB FELTON MD, PHD Procedure Assisted By: sergey Bravo Description of Procedure: This is a complex surgery on the lumbar spine and an physiotherapy assistant as needed for safety of the surgery for setup of instrumentation, retraction and closing. History: This 69-year-old male suffering from a lumbar degenerative scoliosis L2-L5 and a mild lateral listhesis L1-L2. The patient was offered an oblique lumbar interbody fusion L2-3 and L3-4 and an oblique lumbar lateral interbody fusion, Trankambin approach for L4-5 followed by a posterior lateral instrumented fusion L2-L5. The reason why reduced to procedures is to have maximal cage coverage at L2-3 and L3-4 where the largest correction was required due to the presence of osteoporosis. The procedure and complications were explained and the patient was consented. The patient was brought to the operating room and endotracheally intubated. The patient was turned in a lateral position with the left side up. Prep and drape was done followed by timeout. A small incision was made in the left lower abdominal quadrant. The muscle fascia was opened after which the 3 muscle layer was split to enter the retroperitoneal space. Dilators were docked in the anterior one third of the L3-4 disc space followed by a retractor. The retractor was opened. The L3-4 disc space was exposed. An annulotomy was done after which an elevator Guzman was used to release the disc material from its endplates and to perforate the contralateral side. A partial discectomy was done. An 8 mm height trial implant was inserted. The discectomy was completed. The endplates were prepared. An 8 x 45 mm with is 0 degree lordosis 4 web cage filled with allograft was inserted into the disc space under fluoroscopic guidance. Then attention was turned to the L2-3 level. The above-mentioned steps were repeated for this level. An 10 x 45 mm 0 degree lordosis 4 web cage filled with allograft was inserted in this level after the diskectomy and endplate preparation was completed. This resulted in significant correction of the lumbar degenerative scoliosis. The retractor was removed. Hemostasis was done. The incision was closed in 2 layers. Steri-Strips used to approximate incision. An OpSite with Tegaderm was used to cover the incision. This marked first part of the procedure. Accordingly the patient was turned prone on the Michael spine table 2 C arms were installed for fluoroscopy. The next step was to perform the oblique lateral lumbar interbody fusion L4-5. The patient was positioned on the Michael spine table in a modified prone position for ease of access from the left side.. 2C arms were installed for fluoroscopy. Prepping and draping was done followed by timeout. The landmarks, including spinal processes, transverse processes, disc space, endplates and pedicles are identified and marked. The following steps are taken for each specified level: L4-5 level: Cage size 11 mm high and 33 mm long titanium . The patient was turned using the rotation of the surgical table so a near direct anterior lateral approach to the lumbar spine could be achieved. A small incision was then made superior to the mid iliac crest and then using biplanar fluoroscopy visualization, under electrophysiological monitoring and stimulation, we introduced an electrophysiological probe through the retroperitoneal space into the desired disc anterior to the transverse process and then passed it into the disc space after finding a silent window. The sleeve was retained and the probe was removed, then the K wire was passed sequentially into the disc space. A dilating tube was then passed along the same route. Following this, a working channel, a working channel was then passed sequentially into the disc space. The working channel was manually held in position while a series of disc cleaning tools were passed through the channel to remove the affected disc under clear and direct biplanar fluoroscopic visualization, decompress the nerve roots and equal corticated vertebral endplates at this segment. Arthrodesis of the intervertebral space via an anterior retroperitoneal exposure was achieved through Kambin's Pendleton and lateral extraforaminal space. Allograft was added into the anterior disc space. The working channel was then removed. A titanium interbody cage tightly packed with allograft was then inserted into the midportion of the intervertebral disc space over a K-wire under biplanar fluoroscopic visualization and intraoperative neuro monitoring. The inter pedicular and intradiscal space was significantly enlarged and disc height was restored to worked normal anatomy there for releasing pressure on the nerve roots visual largely the spinal canal and lateral recess as well as foramen were bilateral decompressed and all bones were confined to the borders of the disc space . The following steps are then taken for each specified level: L2 to L5 levels: Bilateral L2 screws with a diameter of 6.5 x 45 mm and bilateral L3, L4 and L5 screws with a diameter of 6.5 x 50 mm. The posterolateral fusion is initiated after the patient is rotated to a true prone position. The entry point to the pedicle is identified in the AP and lateral views and then the skin incision is injected with local anesthetic. We entered the pedicle with a Jamshidi needle after which a K-wire was introduced into the vertebral body. Osteoporosis was encountered at every level. Additionally, I used a small periosteal decorticator along the screws to refresh the surface of the bone and facet and I put some amount of allograft for additional stability for the posterolateral fusion. Over the K-wire we insert pedicle screws bilaterally. After the screws were placed, we put [address] and under fluoroscopic imaging, we locked the elizabeth in place and removed the screw tops and then each incision has been closed with 0 Vicryl for the fascia and a 3-0 Vicryl for the subdermal layer. Steri-Strips were used to approximate the incisions. An OpSite with Tegaderm was used to cover the incision. Final x- rays and AP and lateral projection showed good position of the interbody device and instrumentation. All sponge and needle counts were correct. The patient was extubated and transported in a stable condition to the recovery room. Anesthesia: General Estimated Blood Loss (ml): 60 mL Specimen: None Duration of Surgery: 3 hour and 30 minutes Postoperative Plan: Admit to inpatient for observation
[2024-05-16] MEDS: oxyCODONE HCl Immed Release 5 MG TABLET PO (12:38)
[2024-05-16] MEDS: oxyCODONE HCl Immed Release 5 MG TABLET 10 MG PO (16:38)
[2024-05-16] MEDS: 0.9 % Sodium Chloride 1,000 ML 75 ML IVCONT (16:48)
[2024-05-16] MEDS: Ketorolac Tromethamine 15 MG/ML VIAL IVPUSH ×2 (18:23→23:32)
[2024-05-16] MEDS: Potassium Chloride ER 10 MEQ TABLET.ER PO (20:05)
[2024-05-16] MEDS: DULoxetine HCl 20 MG CAPSULE.DR 40 MG PO (20:05)
[2024-05-16] MEDS: traZODone HCL 50 MG TABLET PO (20:05)
[2024-05-16] MEDS: Hydroxychloroquine Sulfate 200 MG TABLET PO (20:05)
[2024-05-16] MEDS: Docusate Sodium 100 MG CAPSULE PO (20:05)
[2024-05-16] MEDS: sulfaSALAzine 500 MG TABLET 1500 MG PO (20:05)
--- NOTE | 2024-05-16 20:24 | PHA.MEDREC ---
Pharmacy Consult ? Medication Reconciliation Pharmacy has reviewed the medication reconciliation done by nursing staff.
[2024-05-17] MEDS: oxyCODONE HCl Immed Release 5 MG TABLET 10 MG PO (00:13)
--- NOTE | 2024-05-17 00:35 | PC.NURSE ---
05/16/24 2330 amb pt to bathroom with walker unable to void bladder scanned for [address]cathed for 500 cc clear yellow urine.DTV at 0410.
[2024-05-17] MEDS: ceFAZolin Sodium/Dextrose,Iso 2 GM/50 ML PIGGYBACK IV (01:49)
[2024-05-17 03:14] VITALS: BP 153/78; PULSE 79; RESP 16; TEMP 36; O2SAT 96
[2024-05-17] MEDS: Acetaminophen 1,000 MG/100 ML PIGGYBACK 400 MG IV ×4 (03:15→21:21)
[2024-05-17] MEDS: HYDROmorphone HCl 1 MG/ML SYRINGE IVPUSH ×2 (03:21→21:20)
[2024-05-17] MEDS: Ketorolac Tromethamine 15 MG/ML VIAL IVPUSH ×4 (05:23→23:12)
[2024-05-17] MEDS: Omeprazole 40 MG CAPSULE.DR PO (05:24)
[2024-05-17] MEDS: 0.9 % Sodium Chloride 1,000 ML 75 ML IVCONT ×2 (05:26→14:54)
--- NOTE | 2024-05-17 06:16 | PC.NURSE ---
0530 Pt amb to bathroom with walker unable to void.Bladder scanned for 381 reza cath #[id number] inserted without difficulty draining yellow urine.
--- NOTE | 2024-05-17 06:26 | PC.NURSE ---
notified that reza was placed.
--- NOTE | 2024-05-17 06:56 | PM.DS ---
DS: Providers Provider Date of admission: 05/16/24 05:57 Primary care physician: Ursula Dubois NP Physical Exam Vital Signs: Vital Signs: Last Vital Signs Temp 96.8 F 05/17/24 03:14 Pulse 79 05/17/24 03:14 Resp 16 05/17/24 03:14 BP 153/78 H 05/17/24 03:14 Pulse Ox 96 05/17/24 03:14 O2 Del Method Room Air 05/17/24 03:14 O2 Flow Rate 8 05/16/24 12:06 BMI result Body Mass Index 22.3 Discharge Plan Discharge Anticipated Discharge Date/Time: 05/17/24 06:56 Patient Disposition: Home, Self-Care Discharge Diagnosis: S/P L2-5 Lumbar Fusion Referrals: Ursula Dubois NP [Primary Care Provider] - 1 Week Discharge Medications: Continued fentanyl 100 mcg/hr patch 72 hour 1 patch topical Q3D duloxetine 40 mg capsule,delayed release(DR/EC) 40 mg PO BID potassium chloride [Klor-Con M10] 10 mEq tablet,ER particles/crystals 10 meq PO BID hydroxychloroquine 200 mg tablet 200 mg PO BID sulfasalazine 500 mg tablet,delayed release (DR/EC) 1,500 mg PO BID sildenafil 25 mg tablet 100 mg PO DIRECTED Eliquis 2.5 mg tablet 2.5 mg PO BID Hold Instructions: Resume on 01/07/24. resume 3 days after surgery amlodipine 10 mg tablet 10 mg PO DAILY omeprazole 40 mg capsule,delayed release(DR/EC) 40 mg PO DAILY trazodone 50 mg tablet 50 mg PO BEDTIME rosuvastatin 10 mg tablet 10 mg PO DAILY naloxone [Narcan] 4 mg/actuation spray,non-aerosol 1 spray intranasal DAILY PRN (Reason: Opioid Overdose) Held leflunomide 20 mg tablet 20 mg PO DAILY Hold Instructions: Resume on 06/17/24. Hold RA medication Diet: Advance to usual diet Activity on Discharge: As tolerated Stand Alone Forms: Patient Portal Discharge page Print Language: Malay Activity Restrictions/Additional Instructions: After your spinal surgery we ask you to observe the following restrictions/guidelines: Activity: With lumbar fusion surgery it is normal to have days in the first couple of weeks where you have increased leg pain. This usually lasts 1-2 days and self resolves with the continuation of medication. Attempt to stay mobile and continue activity as tolerated. It is normal to feel some discomfort as you increase your activity, but that will improve with time. We ask you avoid heavy lifting or activities that cause pain. As a general rule, 8lbs is a safe limit for lifting right after surgery. Walk as much as you feel comfortable but not to exhaustion. You will feel extra tired the first few days after surgery. Stay well hydrated. It is OK to walk up and down stairs You may return to driving when you are off narcotics (such as vicodin, oxycodone, dilaudid, etc), and you are back to normal functional capacity. If you have any concerns please check with office before driving. Return to work is specific to each patient and each surgery, so please speak with your doctor/PA at first follow up. Please bring paperwork such as FMLA at that time if you need it filled out. Medications: It is recommended that you take Tylenol 500 mg every 4 hours for the 1st week postoperatively, ?alongside ibuprofen 600 mg every 8 hours. We will also be prescribing gabapentin 300 mg to be taken every 8 hours for the 1st month postoperatively. We will give you a short supply of narcotics after surgery (usually one weeks worth). ??Please use this for breakthrough pain that is refractory to the Tylenol ibuprofen and gabapentin. If you need more please call the office but do not use more than prescribed. You will need to give our office 48 hours notice if you need narcotics refilled and we do not fill narcotics on weekends or evenings. If you are on a narcotic, it is a good idea to take a stool softener such as colace or senna to avoid constipation If you take blood thinner such as aspirin, Plavix, Coumadin, Effient, Eliquis etc for conditions such as Afib, DVT, Pulmonary embolus, coronary disease, stents etc please speak with your surgeon about specific details as to when you can resume these medications. You can resume NSAIDs on post op day 1 (eg: Motrin, Naproxen, etc). Follow up: Please call the office, , after surgery to arrange a 3 week follow up for wound check. Wound Care: You may remove your dressing on the first day after surgery. ?You may ?leave open to air. Please do not remove the steri strips underneath. they will fall off on their own in one week. IT IS NORMAL FOR THE WOUND TO OOZE OR BE BLOODY FOR A FEW DAYS AFTER SURGERY. ?IF THIS HAPPENS JUST PLACE NEW DRESSING OVER IT TO AVOID STAINING CLOTHES. You may shower on post op day # 1 We ask that you do not let the water soak the wound. If it does get wet, just towel dry lightly. Please do not scrub your incision or place any type of chemical/ointment on the wound. No tub baths, pools or jacuzzis for one month. If you have any leaking or redness from your wound, or fevers, please call office Care Plan Goals: Return to normal activity as tolerated Health Concerns: None Plan of Treatment: Follow-up in clinic in 2-3 weeks. Assessment: POD: 1 Procedure: L2-5 Lumbar fusion Enrike was seen this morning in bed on . He reports he is up walking around is otherwise doing well. He still reports low grade back pain with good relief with pain medications. He is voiding well, tolerating diet. He has been utilizing the PRN Oxycodone and Dilaudid as needed for breakthrough pain control secondary to his Fentanyl patches. He has been up OOB to the bathroom but was unable to void and had a reza placed this AM around 0600. He would like to D/C home today if possible. Afebrile, vital signs stable. Full strength 5/5 bilateral LE. Back dressings have some staining without signs of hematoma. Anterolateral dressing has some mild serosanguineous staining. No active sanguineous drainage. Area is dry. Plan: Patient continues to do well, we will see if he is able to void later today and does well with PT. If so, we will likely attempt to DC him home. Before then we would like to obtain a set of standing X-rays. We will also be starting him on vitamin D & C at discharge due to evidence of osteopenia noted during surgery. He was seen at bedside with the attending neurosurgeon Dr. Spencer.
[2024-05-17 07:17] VITALS: BP 124/69; PULSE 76; RESP 16; TEMP 36.4; O2SAT 96
--- NOTE | 2024-05-17 07:38 | HO.NEURO.PN ---
Neurosurgery Operative Note Date of Service: 05/17/24 Narrative: POD: 1 Procedure: L2-5 Lumbar fusion Enrike was seen this morning in bed on . He reports he is up walking around is otherwise doing well. He still reports low grade back pain with good relief with pain medications. He is voiding well, tolerating diet. He has been utilizing the PRN Oxycodone and Dilaudid as needed for breakthrough pain control secondary to his Fentanyl patches. He has been up OOB to the bathroom but was unable to void and had a reza placed this AM around 0600. He would like to D/C home today if possible. Afebrile, vital signs stable. Full strength 5/5 bilateral LE. Back dressings have some staining without signs of hematoma. Anterolateral dressing has some mild serosanguineous staining. No active sanguineous drainage. Area is dry. Plan: Patient continues to do well, we will see if he is able to void later today and does well with PT. If so, we will likely attempt to DC him home. Before then we would like to obtain a set of standing X-rays. We will also be starting him on vitamin D & C at discharge due to evidence of osteopenia noted during surgery. He was seen at bedside with the attending neurosurgeon Dr. Spencer. Onur Spencer MD,PhD [facility]
[2024-05-17] MEDS: sulfaSALAzine 500 MG TABLET 1500 MG PO ×2 (08:47→20:29)
[2024-05-17 08:48] VITALS: BP 105/58
[2024-05-17] MEDS: amLODIPine Besylate 10 MG TABLET PO (08:48)
[2024-05-17] MEDS: Hydroxychloroquine Sulfate 200 MG TABLET PO ×2 (08:48→20:29)
[2024-05-17] MEDS: Gabapentin 300 MG CAPSULE PO ×3 (08:48→20:29)
--- NOTE | 2024-05-17 08:48 | HO.POSTANES ---
Post Anesthesia Evaluation Post Anesthesia Evaluation Date of Service: 05/17/24 Vital Signs: Vital Signs Temp Pulse Resp BP Pulse Ox O2 Del Method 05/17/24 08:48 105/58 L 05/17/24 07:17 97.6 F 76 16 124/69 96 05/17/24 03:14 96.8 F 79 16 153/78 H 96 Room Air Anesthesia: General Endotracheal-GETA Mental Status: Awake Pain Control: Satisfactory Nausea/Vomiting: None Hydration: Adequate Anesthesia-Related Issues: No Anes. Related Issues
[2024-05-17 08:49] VITALS: BP 105/58; PULSE 89
[2024-05-17] MEDS: Docusate Sodium 100 MG CAPSULE PO ×2 (08:49→20:29)
[2024-05-17] MEDS: Potassium Chloride ER 10 MEQ TABLET.ER PO ×2 (08:49→20:29)
[2024-05-17] MEDS: DULoxetine HCl 20 MG CAPSULE.DR 40 MG PO ×2 (08:49→20:29)
[2024-05-17] MEDS: Atorvastatin Calcium 40 MG TABLET PO (08:50)
--- NOTE | 2024-05-17 10:00 | MHC.CM.PN ---
PT REPORTS HE LIVES WITH HIS AND IS INDEPENDENT WITH CARE PT HAS NO SERVICES AND USES A WALKER TO AMBULATE HE REPORTS HE HAS A HCP AT HOME, COPY REQUESTED PCP: JOB [facility] DELIVERED DCP: HOME ? [facility] TO TRANSPORT
[2024-05-17] MEDS: Calcium + Vitamin D 250 MG TABLET 500 MG PO (11:51)
--- NOTE | 2024-05-17 13:00 | PC.NURSE ---
[facility] D/C ,patient tolerated it well
[2024-05-17 15:36] VITALS: BP 111/60; PULSE 87; RESP 18; TEMP 36.7; O2SAT 98
[2024-05-17 19:26] VITALS: BP 111/61; PULSE 90; RESP 18; TEMP 37.1; O2SAT 97
[2024-05-17] MEDS: traZODone HCL 50 MG TABLET PO (20:29)
--- NOTE | 2024-05-17 22:06 | PC.NURSE ---
2030 pt amb to bathroom voided 600cc yellow urine bladder scanned for 259cc.
[2024-05-18] MEDS: Acetaminophen 1,000 MG/100 ML PIGGYBACK 400 MG IV ×2 (03:19→09:35)
[2024-05-18] MEDS: oxyCODONE HCl Immed Release 5 MG TABLET 10 MG PO (03:23)
[2024-05-18] MEDS: methocarbamoL 750 MG TABLET PO (03:27)
[2024-05-18] MEDS: 0.9 % Sodium Chloride 1,000 ML 75 ML IVCONT (03:27)
[2024-05-18 03:40] VITALS: BP 172/81; PULSE 86; RESP 16; TEMP 36.2; O2SAT 96
[2024-05-18] MEDS: Omeprazole 40 MG CAPSULE.DR PO (05:24)
[2024-05-18] MEDS: Ketorolac Tromethamine 15 MG/ML VIAL IVPUSH (05:24)
[2024-05-18 07:21] VITALS: BP 171/68; PULSE 84; RESP 18; TEMP 36.5; O2SAT 96
[2024-05-18] MEDS: Calcium + Vitamin D 250 MG TABLET 500 MG PO (08:18)
[2024-05-18] MEDS: Docusate Sodium 100 MG CAPSULE PO (08:18)
[2024-05-18] MEDS: sulfaSALAzine 500 MG TABLET 1500 MG PO (08:18)
[2024-05-18] MEDS: Hydroxychloroquine Sulfate 200 MG TABLET PO (08:18)
[2024-05-18] MEDS: amLODIPine Besylate 10 MG TABLET PO (08:18)
[2024-05-18] MEDS: Atorvastatin Calcium 40 MG TABLET PO (08:18)
[2024-05-18] MEDS: Potassium Chloride ER 10 MEQ TABLET.ER PO (08:18)
[2024-05-18] MEDS: DULoxetine HCl 20 MG CAPSULE.DR 40 MG PO (08:19)
[2024-05-18] MEDS: Gabapentin 300 MG CAPSULE PO (08:19)
--- NOTE | 2024-05-18 09:57 | P.DS_ITS ---
DS: Providers Provider Date of Service: 05/16/24 Date of admission: 05/16/24 05:57 Date of discharge: 05/18/24 Primary care physician: Ursula Dubois NP Admitting clinician: Remy Spencer DS: Diagnosis Discharge Diagnosis (1) Scoliosis (and kyphoscoliosis), idiopathic: Status: Acute DS: Summary Time Attestation Discharge Coordination Time (in mins): 6 Quality: Safe Use of Opioids Does Pt have an Active Cancer Diagnosis on the Problem List?: No Quality: Stroke Does the patient have a stroke diagnosis?: No Physical Exam Vital Signs: Vital Signs: Last Vital Signs Temp 97.7 F 05/18/24 07:21 Pulse 84 05/18/24 07:21 Resp 18 05/18/24 07:21 BP 171/68 H 05/18/24 07:21 Pulse Ox 96 05/18/24 07:21 O2 Del Method Room Air 05/18/24 07:21 O2 Flow Rate 8 05/16/24 12:06 BMI result Body Mass Index 22.3 Discharge Plan Discharge Anticipated Discharge Date/Time: 05/17/24 06:56 Patient Disposition: Home, Self-Care Discharge Diagnosis: S/P L2-5 Lumbar Fusion Referrals: Ursula Dubois NP [Primary Care Provider] - 1 Week Discharge Medications: New oxycodone 5 mg tablet See Rx Instructions .ROUTE .COMPLEX PRN (Reason: pain) Qty: 40 0RF Rx Instructions: 1-2 tabs po q4 hours prn pain; Partial Fill upon patient request. docusate sodium [Colace] 100 mg capsule 100 mg PO BID Qty: 20 0RF gabapentin 300 mg capsule 300 mg PO TID Qty: 90 0RF methocarbamol 500 mg tablet 500 mg PO TID PRN (Reason: spasm) Qty: 30 0RF Continued fentanyl 100 mcg/hr patch 72 hour 1 patch topical Q3D duloxetine 40 mg capsule,delayed release(DR/EC) 40 mg PO BID potassium chloride [Klor-Con M10] 10 mEq tablet,ER particles/crystals 10 meq PO BID hydroxychloroquine 200 mg tablet 200 mg PO BID sulfasalazine 500 mg tablet,delayed release (DR/EC) 1,500 mg PO BID sildenafil 25 mg tablet 100 mg PO DIRECTED amlodipine 10 mg tablet 10 mg PO DAILY omeprazole 40 mg capsule,delayed release(DR/EC) 40 mg PO DAILY trazodone 50 mg tablet 50 mg PO BEDTIME rosuvastatin 10 mg tablet 10 mg PO DAILY naloxone [Narcan] 4 mg/actuation spray,non-aerosol 1 spray intranasal DAILY PRN (Reason: Opioid Overdose) Held leflunomide 20 mg tablet 20 mg PO DAILY Hold Instructions: Resume on 06/06/24. you can resume in 2-3 weeks as long as your wounds have healed Eliquis 2.5 mg tablet 2.5 mg PO BID Hold Instructions: Resume on 05/19/24. you may resume on post op day 3 Discharge Orders: Discharge Order (Routine); Ordered 05/18/24 Ordered By: Lars Whitney Diet: Advance to usual diet Activity on Discharge: As tolerated Stand Alone Forms: Patient Portal Discharge page Print Language: Faroese Activity Restrictions/Additional Instructions: After your spinal surgery we ask you to observe the following restrictio ns/guidelines: Activity: With lumbar fusion surgery it is normal to have days in the first couple of weeks where you have increased leg pain. This usually lasts 1-2 days and self resolves with the continuation of medication. Attempt to stay mobile and continue activity as tolerated. It is normal to feel some discomfort as you increase your activity, but that will improve with time. We ask you avoid heavy lifting or activities that cause pain. As a general rule, 8lbs is a safe limit for lifting right after surgery. Walk as much as you feel comfortable but not to exhaustion. You will feel extra tired the first few days after surgery. Stay well hydrated. It is OK to walk up and down stairs You may return to driving when you are off narcotics (such as vicodin, oxycodone, dilaudid, etc), and you are back to normal functional capacity. If you have any concerns please check with office before driving. Return to work is specific to each patient and each surgery, so please speak with your doctor/PA at first follow up. Please bring paperwork such as FMLA at that time if you need it filled out. Medications: You can resume Eliquis 3 days after surgery. You may resume Arava 2-3 weeks after surgery as long as your wound has healed It is recommended that you take Tylenol 500 mg every 4 hours for the 1st week postoperatively, ?alongside ibuprofen 600 mg every 8 hours. We will also be prescribing gabapentin 300 mg to be taken every 8 hours for the 1st month postoperatively. We will give you a short supply of narcotics after surgery (usually one weeks worth). ??Please use this for breakthrough pain that is refractory to the Tylenol ibuprofen and gabapentin. If you need more please call the office but do not use more than prescribed. You will need to give our office 48 hours notice if you need narcotics refilled and we do not fill narcotics on weekends or evenings. If you are on a narcotic, it is a good idea to take a stool softener such as colace or senna to avoid constipation If you take blood thinner such as aspirin, Plavix, Coumadin, Effient, Eliquis etc for conditions such as Afib, DVT, Pulmonary embolus, coronary disease, stents etc please speak with your surgeon about specific details as to when you can resume these medications. You can resume NSAIDs on post op day 1 (eg: Motrin, Naproxen, etc). Follow up: Please call the office, , after surgery to arrange a 3 week follow up for wound check. Wound Care: You may remove your dressing on the first day after surgery. ?You may ?leave open to air. Please do not remove the steri strips underneath. they will fall off on their own in one week. IT IS NORMAL FOR THE WOUND TO OOZE OR BE BLOODY FOR A FEW DAYS AFTER SURGERY. ?IF THIS HAPPENS JUST PLACE NEW DRESSING OVER IT TO AVOID STAINING CLOTHES. You may shower on post op day # 1 We ask that you do not let the water soak the wound. If it does get wet, just towel dry lightly. Please do not scrub your incision or place any type of chemical/ointment on the wound. No tub baths, pools or jacuzzis for one month. If you have any leaking or redness from your wound, or fevers, please call office Care Plan Goals: Return to normal activity as tolerated Health Concerns: None Plan of Treatment: Follow-up in clinic in 2-3 weeks. Assessment: POD: 1 Procedure: L2-5 Lumbar fusion Enrike was seen this morning in bed on . He reports he is up walking around is otherwise doing well. He still reports low grade back pain with good relief with pain medications. He is voiding well, tolerating diet. He has been utilizing the PRN Oxycodone and Dilaudid as needed for breakthrough pain control secondary to his Fentanyl patches. He has been up OOB to the bathroom but was unable to void and had a reza placed this AM around 0600. He would like to D/C home today if possible. Afebrile, vital signs stable. Full strength 5/5 bilateral LE. Back dressings have some staining without signs of hematoma. Anterolateral dressing has some mild serosanguineous staining. No active sanguineous drainage. Area is dry. Plan: Patient continues to do well, we will see if he is able to void later today and does well with PT. If so, we will likely attempt to DC him home. Before then we would like to obtain a set of standing X-rays. We will also be starting him on vitamin D & C at discharge due to evidence of osteopenia noted during surgery. He was seen at bedside with the attending neurosurgeon Dr. Spencer. Post op day 2: Patient was able to void without any problems, he was up moving around at his baseline ambulatory level at home. He has tolerating a diet and his pain is reasonably well controlled so we will discharge him home today.
--- NOTE | 2024-05-18 10:03 | HO.NEURO.PN ---
Neurosurgery Operative Note Date of Service: 05/18/24 Narrative: Postoperative day 2. L2-5 oblique/trans Kambin combination lumbar interbody fusion Patient denies any tingling, numbness or weakness going down his legs. His back pain is reasonably well controlled on his current regimen. He has been voiding okay, tells me that he was able to urinate and his postvoid residual was fine. He has tolerating a diet, no nausea vomiting. Afebrile, systolic blood pressure slightly high but otherwise has been stable. Physical exam: Patient is awake alert oriented, resting comfortably in the bed, full strength of bilateral lower extremities, abdomen soft nondistended nontender, no rebound tenderness or guarding. Back dressings clean and dry, no signs of hematoma. Impression: Postop day 2. L2-5 oblique/trans Kambin combination lumbar interbody fusion, seems to be doing better today. He is voiding normally now. He has been up walking around, he is still slightly unstable but back to his baseline. Patient is requesting to go home and this seems reasonable. He has tolerating a diet, no nausea vomiting. We will plan to discharge him home today. Dr. Spencer has been updated on the patient's status and agrees with the plan as outlined above. He will hold his Eliquis for 3 days and hold as Arava for 2-3 weeks.
--- NOTE | 2024-05-18 10:41 | MHC.CM.PN ---
DP: PT HAS BEEN MEDICALLY CLEARED FOR DC HOME, NO SERVICES. [facility] WILL TRANSPORT.
== END 2024-05-18 11:58 | disposition home or self-care (01) | DRG 458 ==
LOC: HO.SSSA 06:00 → HO.S3 18:19
PROVIDERS: Neurological Surgery; Nurse Practitioner; Admitting Provider Physician Assistant; PCP Nurse Practitioner Adult Health; Visit Provider Physician Assistant
PROC: 0SG10A0 Fusion of 2 or more Lumbar Vertebral Joints with Interbody Fusion Device, Anterior Approach, Anterior Column, Open Approach (ICD-10-PCS; principal; 2024-05-16 07:30)
DX: M51.16 Intervertebral disc disorders with radiculopathy, lumbar region (principal); M41.56 Other secondary scoliosis, lumbar region; J44.9 Chronic obstructive pulmonary disease, unspecified; N40.0 Benign prostatic hyperplasia without lower urinary tract symptoms; M05.9 Rheumatoid arthritis with rheumatoid factor, unspecified; Z79.01 Long term (current) use of anticoagulants; Z79.899 Other long term (current) drug therapy
CPT/HCPCS: 36415; 72100; 80048; 85027; 86850; 86900; 86901; 97116; 97161; C1713; C1758; C1889; C9290; J0131; J0665; J0690; J1100; J1170; J1885; J2250; J2371; J2405; J2704; J3010; L8699

== ENCOUNTER → 2024-05-16 05:57 | Outpatient (BNV) | payer MEDICARE, SELFPAY | PROVIDERS: Admitting Provider Physician Assistant; PCP Nurse Practitioner Adult Health; Visit Provider Neurological Surgery | DX: M41.20 Other idiopathic scoliosis, site unspecified (principal); Z48.89 Encounter for other specified surgical aftercare | CPT/HCPCS: 20930; 22558; 22585; 22612; 22614; 22842; 22853; 63056; 99024; 99499 ==

== ENCOUNTER 2024-06-05 14:40 | Outpatient (AMB) | payer MEDICARE, SELFPAY ==
--- NOTE | 2024-06-05 15:01 | HO.SPINEOV ---
Intake Visit Reasons: 1st post op Intake Note: Mr. Hernandez is here today for his 1st post op visit. 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 He had a sophie postoperative course when he got home. The pain was very intense. He was taking oxycodone and his baseline fentanyl patch in addition to gabapentin and methocarbamol. None of it seemed to be helping much at all however. He has sense got slightly better. He still is having a little bit of the postoperative nerve pain down his left leg but it seems more manageable. Was frustrated with not being able to get in touch with our office quickly and did not feel his pain management was really addressed optimally. Currently he is feeling better and is a bit more mobile. His wounds have healed up very nicely in his strength is good. I reviewed his intraoperative x-rays with him again and compared them to his preoperative so we could see the amount of work that was done. It was an extensive procedure and certainly he may have needed more pain medicine than a traditional single or two-level operation, especially in light of his history of narcotic tolerance with the fentanyl patch. I refilled his oxycodone form today and he thinks the dose of 5-10 mg every 4 hours should be reasonable. He has started back on his Arava and that seems to be helping a bit too. I will see him back in 6 weeks with a set of x-rays. Lars Spencer MD, PhD [facility] Orders: Orders XR lumbar spine 4V min Today M41.20 - Other idiopathic scoliosis, site unspecified Medications: Refilled oxycodone 1-2 tabs orally every 4 hours PRN; Partial Fill upon patient request. 40 tabs 0RF pain Coding Level of Care Code Global (08357) Diagnoses Scoliosis (and kyphoscoliosis), idiopathic M41.20
== END 2024-06-05 15:31 | disposition home or self-care (01) ==
PROVIDERS: PCP Nurse Practitioner Adult Health; Visit Provider Physician Assistant
DX: M41.20 Other idiopathic scoliosis, site unspecified (principal)
CPT/HCPCS: 99024

== ENCOUNTER 2024-06-05 14:40 | Outpatient (REF) | payer MEDICARE, SELFPAY | END 2024-06-05 14:41 | disposition home or self-care (01) | LOC: HO.HOSX 14:40 | PROVIDERS: PCP Nurse Practitioner Adult Health; Visit Provider Physician Assistant | DX: M41.20 Other idiopathic scoliosis, site unspecified (principal) | CPT/HCPCS: 99212 ==

== ENCOUNTER 2024-07-17 09:13 | Outpatient (REF) | payer MEDICARE, SELFPAY ==
--- NOTE | ~2024-07-17 | XR_ITS ---
EXAMINATION: XR lumbar spine 4V min CLINICAL INFORMATION: M41.20 - Other idiopathic scoliosis, site unspecified COMPARISON: Lumbar spine radiographs 05/17/2024 TECHNIQUE: 4 views of the lumbar spine FINDINGS: 5 nonrib-bearing lumbar-type vertebral bodies. Vertebral body heights are maintained. Alignment is maintained. Posterior fusion hardware from L2 to L5 and intervertebral disc spaces without evidence of hardware complication no subluxation between flexion and extension views. Moderate multilevel degenerative disc disease with loss of disc space height, facet arthropathy and disc osteophyte complexes. Atherosclerotic calcifications of the abdominal aorta. XR/XR lumbar spine 4V min IMPRESSION: * Moderate spondylosis of the lumbar spine, as above detailed. * Posterior fusion hardware from L2 to L5 and intervertebral disc spaces without evidence of hardware complication. Electronically signed by: Ruth Lynch MD 08/01/2024 04:37 PM EDT
== END 2024-07-17 09:14 | disposition home or self-care (01) ==
LOC: HO.XRAY 09:13
PROVIDERS: PCP Nurse Practitioner Adult Health; Visit Provider Physician Assistant
DX: M41.20 Other idiopathic scoliosis, site unspecified (principal); Z98.1 Arthrodesis status
CPT/HCPCS: 72110; 99212

== ENCOUNTER 2024-07-17 09:13 | Outpatient (AMB) | payer MEDICARE, SELFPAY ==
--- NOTE | 2024-07-17 09:49 | A.SPINEOV_ITS ---
Intake Visit Reasons: 2nd post op with xray Intake Note: Mr. Hernandez is here today for his 2nd post-op visit. 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 He states that he has been doing much better since he was previously seen, but is still having quite a bit pain in his low back. He reports he is currently only taking Tylenol for the pain. He does feel he is walking better, and completing stairs without much issue. He does not report any shooting or radicular pains. We reviewed the x-ray imaging that he had completed before his visit today which shows stable placement of the surgical construct. I compared his imaging from today to his intra op imaging with him in the office, to reassure him that he is stable placement of his surgical construct and to thoroughly evaluate his hardware placement with him present. No new neurological deficits. Patient is able to ambulate well, rises from a seated position without difficulty. LE strength testing is 5/5 diffusely. Incision sites are closed, well healing, with no signs of drainage. I refilled a prescription of gabapentin for the patient as this has previously prescribed by FABIOLA Whitney. I also added on a course of muscle relaxers to be taken alongside the gabapentin. Hopefully this will help him with his residual low back pain which he is currently only treating with Tylenol. The patient was present for the medication decision-making process and was in the office with me when the prescriptions were sent. He understands and agrees to this medication regimen. Onur Spencer MD,PhD [facility] Orders: Orders XR lumbar spine 4V min Today M41.20 - Other idiopathic scoliosis, site unspecified Medications: New gabapentin 300 mg PO TID 60 caps 0RF nerve pain cyclobenzaprine 5 mg PO TID PRN 30 tabs 0RF muscle spasms Discontinued gabapentin Discontinued Reason: Duplicate 300 mg PO TID 90 caps 0RF Coding Level of Care Code Global (20495) Diagnoses S/P lumbar fusion Z98.1
== END 2024-07-17 09:58 | disposition home or self-care (01) ==
PROVIDERS: PCP Nurse Practitioner Adult Health; Visit Provider Physician Assistant
DX: Z98.1 Arthrodesis status (principal)
CPT/HCPCS: 99024

== ENCOUNTER 2024-08-14 08:46 | Outpatient (AMB) | payer MEDICARE, SELFPAY ==
--- NOTE | 2024-08-14 09:06 | HO.SPINEOV ---
Intake Visit Reasons: 3rd post op/1month f/u Intake Note: Mr. Hernandez is here today for his 3rd post-op visit. 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 Thankfully, Enrike reports that he is able to ambulate well without the assistance of a walker or cane, he is able to complete stairs, he has no pain in his legs, and has improved low back pain. He is no longer taking the gabapentin that we had previously prescribed for him. We are not currently prescribing any pain medications for him. He denies need for any subsequent prescriptions. I did offer to continue his gabapentin for him as he previously reported that it was helping with his nerve pain/muscle spasms. He reported that this is not necessary and he has not taken it in a couple of weeks. There is no need for continued routine follow-up with Lobo. I will be ordering a CT scan to be completed in about 10-11 months out from his surgery. I would like to follow up with him 1 year out from his surgery to evaluate for fusion progress, and resolution of back pain. Onur Spencer MD,PhD [facility] Coding Level of Care Code Global (17774) Diagnoses S/P lumbar fusion Z98.1
== END 2024-08-14 09:18 | disposition home or self-care (01) ==
PROVIDERS: PCP Nurse Practitioner Adult Health; Visit Provider Physician Assistant
DX: Z98.1 Arthrodesis status (principal)
CPT/HCPCS: 99024

== ENCOUNTER → 2024-08-14 08:46 | Outpatient (BNVA) | payer MEDICARE, SELFPAY | PROVIDERS: PCP Nurse Practitioner Adult Health; Visit Provider Physician Assistant | DX: Z98.1 Arthrodesis status (principal) | CPT/HCPCS: 99212 ==

== ENCOUNTER 2025-01-04 10:35 | Outpatient (AMB) | payer MEDICARE, SELFPAY ==
--- NOTE | 2025-01-04 10:41 | HO.SPINEOV ---
Intake Visit Reasons: persistent LBP sx 05/31 Intake Note: Mr. Hernandez is here today c/o persistent Low back pain. He had surgery on 05/31. 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 To recap he suffered from fairly significant pain control problems directly after surgery. We had to keep him on a protracted course of pain medication. Thankfully by the time he saw us for his 2nd postoperative visit he was doing much better overall. Unfortunately, about 2 months ago he began feeling severe axial low back pain. When describing the pain he runs his hand directly over his mid lumbar spine in an axial fashion. This has limited him to the point where he is now ambulating around most places with the assistance of a walker per his report. He did ambulate independently into clinic today, but notably was in significant pain slightly hunched over while walking. He reports that all nonnarcotic prescription medications and over the counter medications that he has attempted have not even come close to addressing his pain. He was requesting subsequent prescriptions of narcotic pain control during this visit, which I informed him we typically do not do this far out from surgery. Allergies: No changes reported. Physical exam: The patient has 5/5 strength in his bilateral lower extremities. However he does elicit pain to full strength testing. He rises from a seated position with the assistance of the chair. He ambulates very slowly and with notable pain, hunching over while doing so. He was able to climb up onto the examination table at however elicited pain when doing so. His bilateral patella and left Achilles reflex are 1+ hypoactive. His right Achilles reflex is intact. Plan: I have 2 main concerns regarding Lobo at this point in time. The 1st being pseudoarthrosis causing continued pain due to micro instability. The patient may not be completely fused at this time but we should be able to evaluate for some bone growth we obtain CT imaging. CT scan imaging would also allow us to evaluate his instrumentation much better for any hardware failure. I will order him a stat CT scan to be completed. While that his processing I am going to send him upstairs to our x-ray office for x-ray imaging of the lumbar spine to ensure there is no obvious hardware failure that can be seen on x-ray imaging. I also informed him that I will discuss this immediately with Dr. Spencer when I see him this afternoon. He understands that I most likely will not be able to prescribe narcotic pain control, but will discuss this with Dr. Spencer either way and call him if I am able to do so. I will call him with the results of his CT imaging as soon as it is read by Radiology. Onur Spencer MD,PhD [facility] Orders: Orders CT lumbar spine wo IV con Today Z98.1 - Arthrodesis status XR lumbar spine 4V min Today Z98.1 - Arthrodesis status Coding Level of Care Code Est Pt Level 3 (39010) Diagnoses S/P lumbar fusion Z98.1
--- OUTSIDE RECORDS SUMMARY | 2025-01-04 12:29 | XMS_ITS | Clinical Summary ---
Author Organization [facility] Address [facility] [place] [address] Care Team Providers Care Tooth Cutter Name Role Phone Ananya Palacios MD Primary Care Provider [phone] Allergies No known active allergies Medications Medication Sig Dispensed Refills Start Date End Date Status hydroCHLOROthiazide (HYDRODIURIL) 25 mg Tablet TAKE 1 TABLET BY MOUTH EVERY DAY 5 07/02/2017 Active meTOPROLOL succinate (TOPROL-XL) 100 mg Tablet Sustained Release 24 hr Take 150 mg by mouth daily. 07/24/2017 Active leflunomide (ARAVA) 20 mg Tablet TAKE 1 TABLET BY MOUTH EVERY DAY 90 tablet 2 02/08/2019 Active ELIQUIS 2.5 mg Tablet TAKE 1 TABLET BY MOUTH TWICE A DAY 0 02/08/2019 Active rosuvastatin (CRESTOR) 20 mg Tablet TAKE 1 TABLET BY MOUTH EVERY DAY 2 01/06/2019 Active inFLIXimab (REMICADE) 100 mg Recon Soln 5mg/kg dose IV x 1 on wk 0,2,6 and every 8 weeks. To be done at [facility]. 1 each 02/21/2019 Active amLODIPine (NORVASC) 10 mg Tablet TAKE 1 TABLET BY MOUTH EVERY DAY 2 04/21/2019 Active omeprazole (PRILOSEC) 40 mg Capsule, Delayed Release(E.C.) TAKE 1 CAPSULE BY MOUTH EVERY DAY 3 02/24/2019 Active HYDROcodone-acetamin ophen (NORCO) 10-325 mg TabletIndications:Rh eumatoid arthritis involving multiple sites with positive rheumatoid factor,Rheumatoid arthritis with positive rheumatoid factor, involving unspecified site,High risk medication use Take 1 tablet by mouth 2 times daily as needed for Pain. 60 tablet 08/09/2019 Active traZODone (Desyrel) 50 mg TabletIndications:Rh eumatoid arthritis with positive rheumatoid factor, involving unspecified site,High risk medication use TAKE 1 TABLET BY MOUTH EVERY DAY 90 tablet 1 01/12/2020 Active Active Problems Patient Care Coordination No te Formatting of this note migh t be different from the original. Hydrocodone-Acets Contract and Drug Screen updated February 2019 for TFD Problem Noted Date Diagnosed Date Elbow effusion, left 06/28/2018 Assessment & Plan (09/22/2018 3:19 PM EST): Completely resolved following surgery. His elbow looks fantastic. No complications following surgery. Assessment & Plan (06/28/2018 11:00 AM EDT): Other pulmonary embolism without acute cor pulmo nale 09/07/2017 Pulmonary embolism 09/06/2017 High risk medication use 07/27/2017 Assessment & Plan (09/22/2018 3:19 PM EST): Labs have been stable. He will be due for repeat labs in October. We will continue to follow closely make any necessary to on our findings and his symptoms. Assessment & Plan (05/17/2018 12:44 PM EDT): I have reviewed all of the most recent lab results in [facility]. The most recent laboratory results were reviewed with the patient and are in the results section. The labs are overall stable and will continue to be monitored. Labs to be done every 3 months: Hemogram, AST, ALT, Creatinine. The patient has been advised of the toxicities and the risks of the current medications. Close monitoring is required and adherence to the proper lab schedule is mandatory to monitor for these toxicities and to promote patient safety which is of primary concern. The patient understands the need for systematic and frequent lab monitoring for their safety with the current medications or any other further medications. Assessment & Plan (11/16/2017 9:41 AM EST): All labs were personally reviewed. We will continue to monitor the laboratory values every 3 months. This will include a Hemogram, AST, ALT, Creatinine. Knee effusion, left 07/27/2017 Trochanteric bursitis 07/27/2017 Assessment & Plan (11/16/2017 9:39 AM EST): Proceed with corticosteroid injection today. He does have exercises to do at home to help with pain. Chronic pain 03/23/2017 Assessment & Plan (02/28/2019 5:05 PM EDT): Discussed with his primary care physician. And given the fact that he really is unable to take more than prednisone, I think at this point were going to increase the dose of the pain medication. Assessment & Plan (05/17/2018 12:59 PM EDT): There is a chronic pain component to his rapid 3 score. I think he has done very well with the pain contract. Continue the current dose. Assessment & Plan (11/16/2017 9:41 AM EST): He is up-to-date with his pain contract. His PDMP check is okay. We have this to be scanned. DAJA RHEUMATOLOGY RISKS OF OPIOID MEDICATION FOR CHRONIC PAIN I understand and have been counseled by my provider that these medications have potential risks, the most significant bein. Physical dependence: The abrupt discontinuation of the opioid medication could lead to withdrawal symptoms such as abdominal cramping, diarrhea, anxiety, seizures, and . 2. Addiction: You may become addicted, meaning your behavior may become focused on obtaining opioid medication. Addiction is the use of a medicine even if it causes harm, having cravings for a drug, and the need to use a drug despite suffering harm and a decreased quality of life while using the drug. 3. Overdose: Overdose of the opioid medication may lead to respiratory arrest and . This risk is increased if opioids are used with alcohol or other sedating substances. Naloxone is a drug that can be administered to you in case of an overdose and may reverse temporarily the lethal effects of an opioid overdose. Your clinician can write you a prescription for this drug if you like and the pharmacist or you clinician can teach you or a friend or loved one how to use it. 4. Tolerance: Tolerance means that your body may get used to the drug and may require higher doses to achieve the same effect. If tolerance occurs repeatedly, your medicine may need to be discontinued. If you are already tolerant, the risk of continuing to use the medication at a higher dose probably exceeds the benefit and your opioids may be discontinued or a lower dose will be recommended. 5. Crime Victimization: People may try to steal these medications from you. You are responsible for ensuring the security of these medications, for example, keeping them hidden in a lock?box. You should not tell other people you have these drugs. 6. Physical Side Effects: This class of drugs may cause confusion, sedation, drowsiness, problems with coordination, changes in thinking ability, nausea, constipation, unsteadiness, problems urinating, depression, sexual dysfunction in both men and women, allergic reaction, slowing of reflexes or reaction time, and tolerance to pain relief. It may be unsafe for you to drive a vehicle, operate hazardous or heavy equipment, work at unprotected heights, be responsible for another individual who is unable to care for him or herself, or do other potentially dangerous activities while using these medicines. (Males only) Chronic opioid use has been associated with low testosterone levels in males. This may affect mood, stamina, sexual desire and physical and sexual performance. Your clinician may check your blood to see if your testosterone level is normal. Non-restorative sleep 03/23/2017 Assessment & Plan (05/17/2018 12:44 PM EDT): Continue trazodone for now. Rheumatoid arthritis with positive rheumatoid fa ctor 03/23/2017 Overview (11/16/2017): CCP>250, RF 1:160 Assessment & Plan (07/12/2019 8:53 AM EDT): Little to no synovitis at this time on loading dose of infliximab. Tolerating medication well. Continue with leflunomide and infliximab at current doses and frequencies. Using [place] when needed. We reviewed his most recent labs including liver function tests. If liver function tests are elevated once again we will investigate further by ordering a liver scan. Follow-up in 6 months unless needed sooner Assessment & Plan (02/28/2019 5:02 PM EDT): Set up for Remicade. I did discuss with his primary care physician will help me. That way he will be able to have it done by his home town. Also set up to have his pain medication and will increase that dose as well. Assessment & Plan (09/22/2018 3:21 PM EST): Patient is currently doing fairly well from a rheumatoid arthritis standpoint. He continues on Enbrel and leflunomide. He is having some achiness in his lower extremities but per his own admission he is not drinking enough water. I think it is more muscular in nature rather than joint hawley. He has no significant warmth or effusion in his knees. He does have crepitus. His knees have both been replaced in the past. He does work long hours standing at [employer]. Some of it may be due to his activity level as well. He was encouraged to drink more water and stay active. We will continue to monitor his labs regularly make adjustments as needed based on our findings and his symptoms. Hopefully we will be able to continue him on Enbrel until at least he retires over the summer. At that point we may have to look in other options such as infusions. We did talk about that briefly today. He would like to continue on Enbrel as long as he can. Assessment & Plan (06/28/2018 11:00 AM EDT): Left elbow effusion with synovitis, soft tissue swelling extending down to the wrist. There is also left synovitis on exam. Attempted aspiration but this was a dry tap. Likely loculated fluid. He was injected with 40 mg Depo-Medrol. Side effects, risks and benefits of injection reviewed and discussed prior to injection. Postinjection instructions were reviewed and discussed. We will have him follow-up if needed if the injection is ineffective. Oral prednisone 30 mg x 4 days given by the emergency room has not been effective. He was given a note for work for and Wednesday. Assessment & Plan (05/17/2018 12:44 PM EDT): I think overall disease activity is controlled. Continue combination of Enbrel and leflunomide. He can use prednisone as a taper if he flares. Assessment & Plan (11/16/2017 9:40 AM EST): His disease activity is worsening. He does flare. Overall he feels stable than he has in the past. For now we will continue Enbrel and leflunomide. Labs will be continued every 3 months. He has prednisone for taper for flare if needed. I gave him a refill of that as well. CRP elevated 11/17/2016 Osteopenia 02/12/2016 Right wrist effusion 02/12/2016 Insomnia 11/05/2015 Resolved Problems Problem Noted Date Diagnosed Date Resolved Date On etanercept therapy 07/27/20172018 Family History Relation Status Comments Father Mother Alive Social History Tobacco Use Types Packs/Day Years Used Date Smoking Tobacco: Former Cigarettes 2 30 1 959 - 1988 Smokeless Tobacco: Never Tobacco Cessation:Counseling Given: No Sex and Gender Information Value Date Recorded Sex Assigned at Not on file Gender Identity Not on file Sexual Orientation Not on file Last Filed Vital Signs Vital Sign Reading Time Taken Comments Blood Pressure 152/82 07/13/2019 9:39 AM EDT Pulse 79 07/13/2019 9:39 AM EDT Temperature 36.5 ??C (97.7 ??F) 07/13/2019 9 :39 AM EDT Respiratory Rate 16 07/04/2018 3:46 PM EDT Oxygen Saturation 97% 07/13/2019 9:3 9 AM EDT Inhaled Oxygen Concentration - - Weight 70.5 kg (155 lb 6.4 oz) 07/13/20 19 9:39 AM EDT with shoes Height 172.1 cm (5' 7.75 ) 05/30/2019 8 :50 AM EDT Body Mass Index 23.8 05/30/2019 8:50 AM EDT Plan of Treatment Health Maintenance Due Date Last Done Comments CT Colonography 1953 Colonoscopy 1953 Colorectal Cancer Screening 1955 FIT DNA 1953 FIT 1953 Sigmoidoscopy (10 year) with FIT yearly 1953 Sigmoidoscopy 1953 Hepatitis C Screening 1971 Tetanus/Diphtheria/Pertussis Vaccines (1 - Tdap) 04/17 Pneumoccocal Vaccine: 50+ (1 of 1 - PCV) 2003 Zoster vaccine (1 of 2) 2003 Advance Directive 2008 AAA Screen 2018 Covid-19 Vaccine (1 - 2023-25 season) 2024 Influenza (Flu) vaccine (1 o f 1 - Influenza standard series) 07/09/2024 Care Teams Tooth Cutter Relationship Specialty Start Date End Date Ananya Palacios MD [address] [facility] [address] [place] [address] PCP - General General Internal Medicine 09/09/15
== END 2025-01-04 11:10 | disposition home or self-care (01) ==
PROVIDERS: PCP Nurse Practitioner Adult Health; Visit Provider Physician Assistant
DX: Z98.1 Arthrodesis status (principal)
CPT/HCPCS: 99213

== ENCOUNTER 2025-01-04 10:35 | Outpatient (REF) | payer MEDICARE, SELFPAY ==
--- NOTE | ~2025-01-04 | XR_ITS ---
CLINICAL HISTORY: Z98.1 - Arthrodesis status 4 views lumbar spine Comparison: 07/17/2024 Findings: There is scoliotic curvature.. Multiple level iatrogenic findings with surgical hardware in position. No acute fractures or dislocation. No significant degenerative change. IMPRESSION: No acute findings. This document has been electronically signed by: Enrike Craven MD on 01/04/2025 19:13:52
--- OUTSIDE RECORDS SUMMARY | 2025-01-04 13:28 | XMS_ITS | Clinical Summary ---
Author Organization [facility] Address [facility] [place] [address] Care Team Providers Care Channel Account Manager Name Role Phone Ananya Palacios MD Primary Care Provider [phone] Allergies No known active allergies Medications Medication [...] every 8 weeks. To be done at [facility]. 1 each 02/21/2019 Active amLODIPine (NORVASC) 10 [...] of the most recent lab results in [facility]. The most recent laboratory results were [...] infliximab at current doses and frequencies. Using [place] when needed. We reviewed his most recent [...] He does work long hours standing at [employer]. Some of it may be due to [...] - Influenza standard series) 07/09/2024 Care Teams Channel Account Manager Relationship Specialty Start Date End Date Ananya Palacios MD [address] [facility] [address] [place] [address] PCP - General General Internal Medicine 09/09/15
== END 2025-01-04 10:36 | disposition home or self-care (01) ==
LOC: HO.HOSX 10:35
PROVIDERS: PCP Nurse Practitioner Adult Health; Visit Provider Physician Assistant
DX: Z98.1 Arthrodesis status (principal)
CPT/HCPCS: 72110; 99212

== ENCOUNTER → 2025-01-04 11:24 | Outpatient (BNV) | payer MEDICARE, SELFPAY | PROVIDERS: PCP Nurse Practitioner Adult Health; Visit Provider Specialist | DX: Z98.1 Arthrodesis status (principal) | CPT/HCPCS: 72110 ==

== ENCOUNTER 2025-01-11 14:44 | Outpatient (REF) | payer MEDICARE, SELFPAY ==
--- NOTE | ~2025-01-11 | CT_ITS ---
EXAMINATION: CT LUMBAR SPINE WITHOUT CONTRAST CLINICAL INFORMATION: Status post lumbar fusion COMPARISON: None available. TECHNIQUE: Axial 2 mm thin and reformatted 2 minute thin sagittal and coronal images of lumbar spine are obtained. This CT examination was performed using dose optimization techniques as appropriate, variously including the following: *Automated exposure control *Adjustment of mA and/or kV according to patient size (this includes techniques or standardized protocols for targeted exams where dose is matched to indication/reason for exam; i.e. extremities or head) *Use of iterative reconstruction technique DLP: 422 mGy/cm. FINDINGS: There is maintained lumbar lordosis. There are disc prostheses at L3-4, L4-5 and L5-S1 disc level. Bilateral pedicle screws and interconnecting rods from L3 through S1 vertebra are stable. No hardware malfunction seen. There is mild vacuum disc phenomena at L2-3 and L5-S1 disc levels there is no lytic or sclerotic process seen. The paravertebral soft tissues are normal. The spinal canal appears capacious. There is levoscoliosis. SI joints are symmetrical and normal. CT/CT lumbar spine wo IV con IMPRESSION: Disc prosthesis with fusion at L3-4, L4-5-5 6 disc level. They are stabilized with bilateral pedicle screws extending from L3 through S1 vertebra. There is no hardware malfunction seen. No aggressive lytic or sclerotic process. The SI joints are normal. Electronically signed by: Woodrow Lee MD 01/11/2025 03:49 PM EST
--- OUTSIDE RECORDS SUMMARY | 2025-01-11 18:08 | XMS_ITS | Clinical Summary ---
Author Organization [facility] Address [facility] [place] [address] Care Team Providers Care Geospatial Systems Integrator Name Role Phone Ananya Palacios MD Primary Care Provider [phone] Allergies No known active allergies Medications Medication [...] every 8 weeks. To be done at [facility]. 1 each 02/21/2019 Active amLODIPine (NORVASC) [...] of the most recent lab results in [facility]. The most recent laboratory results were reviewed [...] infliximab at current doses and frequencies. Using [place] when needed. We reviewed his most [...] He does work long hours standing at [employer]. Some of it may be due to [...] - Influenza standard series) 07/09/2024 Care Teams Geospatial Systems Integrator Relationship Specialty Start Date End Date Ananya Palacios MD [address] [facility] [address] [place] [address] PCP - General General Internal Medicine 09/09/15
== END 2025-01-11 14:45 | disposition home or self-care (01) ==
LOC: HO.CT 14:44
PROVIDERS: PCP Nurse Practitioner Adult Health; Visit Provider Physician Assistant
DX: Z98.1 Arthrodesis status (principal)
CPT/HCPCS: 72131

== ENCOUNTER → 2025-01-11 14:46 | Outpatient (BNV) | payer MEDICARE, SELFPAY | PROVIDERS: PCP Nurse Practitioner Adult Health; Visit Provider Radiology Diagnostic Radiology | DX: Z98.1 Arthrodesis status (principal) | CPT/HCPCS: 72131 ==

== ENCOUNTER 2025-01-26 14:55 | Outpatient (AMB) | payer MEDICARE, SELFPAY ==
--- NOTE | 2025-01-26 14:59 | A.SPINEOV_ITS ---
Intake Visit Reasons: CT f/u Intake Note: Mr. Hernandez is here today to F/u on the results to his CT. Disc Pad Grinder Required: No Allergies No Known Allergies Allergy (Verified 01/04/25 10:44) Assessment & Plan Assessment & Plan (1) Pseudoarthrosis of lumbar spine: Code(s): S32.009K - Unspecified fracture of unspecified lumbar vertebra, subsequent encounter for fracture with nonunion Category: Medical Plan Dear colleague, On 01/26/2025 I saw for follow-up Loob Hernandez. He is status post L3-S1 lumbar fusion on 05/16/2024 for correction of degenerative scoliosis. He had a rough postoperative course but eventually did well as far as his back pain. Unfortunately now the back pain starts to return and he describes the pain as [id number]. A CT scan of the lumbar spine was obtained which shows a pseudoarthrosis of the L5-S1 segment. An extensive discussion with the patient and his about a revision surgery to address the L5-S1 pseudoarthrosis. His overall physical condition and bone quality reduces the chances that I will be able to achieve a fusion. In addition, if a fusion is achieved, that does not necessarily mean that his back pain will be better. Despite the negative picture I painted, he would opt for a revision surgery. He is currently treated for a acute pulmonary embolism under Eliquis, which is his 2nd pulmonary embolism. Obviously, surgery will be very high-risk and I told him to come back after the campus ambassador says he is cleared for surgery. I spent 20 minutes in his consult to review imaging and discussing plan of care. Remy Spencer MD, PhD Spine Fellowship Trained Neurosurgeon Director, [facility] Coding Level of Care Code Est Pt Level 3 (29980) Diagnoses Pseudoarthrosis of lumbar spine S32.009K
--- OUTSIDE RECORDS SUMMARY | 2025-01-26 17:03 | XMS_ITS | Clinical Summary ---
Author Organization [facility] Address [facility] [place] [address] Care Team Providers Care Pipe Jeeper Name Role Phone Ananya Palacios MD Primary Care Provider [phone] Allergies No known active allergies Medications Medication [...] every 8 weeks. To be done at [facility]. 1 each 02/21/2019 Active amLODIPine (NORVASC) 10 [...] of the most recent lab results in [facility]. The most recent laboratory results were [...] infliximab at current doses and frequencies. Using [place] when needed. We reviewed his most recent [...] He does work long hours standing at [employer]. Some of it may be due to [...] - Influenza standard series) 07/09/2024 Care Teams Pipe Jeeper Relationship Specialty Start Date End Date Ananya Palacios MD [address] [facility] [address] [place] [address] PCP - General General Internal Medicine 09/09/15
== END 2025-01-26 15:44 | disposition home or self-care (01) ==
LOC: HO.HNS 14:56
PROVIDERS: PCP Nurse Practitioner Adult Health; Visit Provider Neurological Surgery
DX: M96.0 Pseudarthrosis after fusion or arthrodesis (principal)
CPT/HCPCS: 99213

== ENCOUNTER → 2025-01-26 14:55 | Outpatient (BNVA) | payer MEDICARE, SELFPAY | PROVIDERS: PCP Nurse Practitioner Adult Health; Visit Provider Neurological Surgery | DX: S32.009K Unspecified fracture of unspecified lumbar vertebra, subsequent encounter for fracture with nonunion (principal) | CPT/HCPCS: 99212 ==